=== PATIENT | male | born 1935 | race Caucasian/White ===

== ENCOUNTER 2017-07-13 09:03 | Observation (INO) | payer BC, OTHER ==
[2017-07-13 09:09] VITALS: BMI 25.4
--- NOTE | 2017-07-13 09:17 | PDOC ---
History of Present Illness - General Chief Complaint: Edema Stated Complaint: RT ARM PAIN Time Seen by Provider: 07/13/17 09:17 - History of Present Illness Initial Comments: 07/13/17 09:18 Mr. Lyn is an 82 yo male w/ pmh of CHF, AFIB on warfarin, tricuspid insufficiency, (+Coumadin; + Digoxin), HTN, hypothyroidism, hyperlipidemia, anemia (iron deficient), who presents complaining of a 2-3 day history of right hand swelling and pain. He denies any trauma or injury to his extremity but reports he has also had difficulty moving it over this same time period. Denies any prior history of gout. The patient denies chest pain, shortness of breath, headache and dizziness. Denies fever, chills, nausea, vomit, diarrhea and constipation. Denies dysuria, frequency, urgency and hematuria. Allergies: cefuroxime Past History - Past Medical History Allergies/Adverse Reactions: Allergies Allergy/AdvReac Type Severity Reaction Status Date / Time cefuroxime Allergy Intermediate rash on Verified 07/13/17 09:05 legs Home Medications: Ambulatory Orders Digoxin [Lanoxin -] 0.125 mg PO DAILY 05/24/15 Furosemide 40 mg PO DAILY 05/24/15 Levothyroxine [Synthroid -] 50 mcg PO DAILY 05/24/15 Losartan Potassium [Cozaar -] 25 mg PO DAILY 05/24/15 Potassium Chloride 20 meq PO DAILY 05/24/15 Simvastatin [Zocor -] 10 mg PO HS 05/24/15 Metoprolol Succinate [Toprol XL -] 50 mg PO BID tab.sr.24h 05/31/15 Cholecalciferol (Vitamin D3) [Vitamin D3] 1,000 unit PO DAILY 07/13/17 Cyanocobalamin (Vitamin B-12) [Vitamin B-12] 1,000 mcg PO DAILY 07/13/17 Spironolactone 25 mg PO DAILY 07/13/17 Tamsulosin HCl 0.4 mg PO DAILY 07/13/17 Warfarin Na [Coumadin -] 6 mg PO DAILY@1800 07/13/17 Anemia: No Asthma: No Cancer: No Cardiac Disorders: Yes (atrial fib) CVA: No COPD: No CHF: Yes (10 yeas ago) Dementia: No Diabetes: No GI Disorders: No Disorders: No HTN: Yes Hypercholesterolemia: No Liver Disease: No Seizures: No Thyroid Disease: Yes - Surgical History Neurologic Surgery: No - Suicide/Smoking/Psychosocial Hx Smoking Status: No Smoking History: Former smoker Have you smoked in the past 12 months: No Number of Cigarettes Smoked Daily: 0 If you are a former smoker, when did you quit?: 1953 Information on smoking cessation initiated: No Hx Alcohol Use: No Drug/Substance Use Hx: No Substance Use Type: None Hx Substance Use Treatment: No Review of Systems - Review of Systems Comments:: 07/13/17 10:34 GENERAL/CONSTITUTIONAL: No fever or chills. No weakness. HEAD, EYES, EARS, NOSE AND THROAT: No change in vision. No ear pain or discharge. No sore throat. CARDIOVASCULAR: No chest pain or shortness of breath RESPIRATORY: No cough, wheezing, or hemoptysis. GASTROINTESTINAL: No nausea, vomiting, diarrhea or constipation. GENITOURINARY: No dysuria, frequency, or change in urination. MUSCULOSKELETAL: +Right hand /arm swelling / pain as described. SKIN: No rash NEUROLOGIC: No headache, vertigo, loss of consciousness, or change in strength/ sensation. ENDOCRINE: No increased thirst. No abnormal weight change HEMATOLOGIC/LYMPHATIC: No anemia, easy bleeding, or history of blood clots. ALLERGIC/IMMUNOLOGIC: No hives or skin allergy. *Physical Exam - Vital Signs Last Vital Signs Temp Pulse Resp BP Pulse Ox 98.1 F 94 H 17 172/93 97 07/13/17 09:05 07/13/17 09:05 07/13/17 09:05 07/13/17 09:05 07/13/17 09:05 - Physical Exam Comments: 07/13/17 10:36 GENERAL: Awake, alert, and fully oriented, in no acute distress HEAD: No signs of trauma, normocephalic, atraumatic EYES: PERRLA, EOMI, sclera anicteric, conjunctiva clear ENT: Auricles normal inspection, hearing grossly normal, nares patent, oropharynx clear without exudates. Moist mucosa NECK: Normal ROM, supple, no lymphadenopathy, JVD, or masses LUNGS: No distress, speaks full sentences, clear to auscultation bilaterally HEART: Regular rate and rhythm, normal S1 and S2, no murmurs, rubs or gallops, peripheral pulses normal and equal bilaterally. ABDOMEN: Soft, nontender, normoactive bowel sounds. No guarding, no rebound. No masses EXTREMITIES: +Right hand erythematous and warm. Patient range of motion limited by edema. Moderate tenderness to right upper arm as well just proximal to elbow. NEUROLOGICAL: Cranial nerves II through XII grossly intact. Normal speech, normal gait, no focal sensorimotor deficits SKIN: Warm, Dry, normal turgor, no rashes or lesions noted. ED Treatment Course - LABORATORY CBC & Chemistry Diagram: 07/13/17 10:13 07/13/17 10:13 Medical Decision Making - Medical Decision Making 07/13/17 10:49 Mr. Lyn is an 82 yo male w/ pmh as described who presents w/ symptoms concerning for cellulitis vs dvt vs gout. Labs/imaging sent for evaluation. 07/13/17 13:44 US negative for DVT. XR negative for other acute process. Labs as below consistent with infection. Admitting patient for further observation and IV antibiotics for cellulitis. *DC/Admit/Observation/Transfer Diagnosis at time of Disposition: Cellulitis Qualifiers: Site of cellulitis: other site Qualified Code(s): L03.818 - Cellulitis of other sites - Discharge Dispostion Admit: Yes - Referrals Referrals: Hannah Ho MD [Primary Care Provider] - - Patient Instructions - Post Discharge Activity
--- NOTE | 2017-07-13 09:23 | PDOC ---
Attending Attestation - HPI HPI: 07/13/17 10:15 The patient is an 82 year old male with a significant PMH of tricuspid insufficiency (on Coumadin & Digoxin), CHF, AFib, anemia, HTN, hypothyroidism, hyperlipidemia who presents to the emergency department with right hand swelling and pain beginning approximately 2-3 days ago. He states his right hand pain radiates up his right arm. The patient denies recent trauma. Allergies: Cefuroxime PCP: Dr. Ho <Pipe Larios - Last Filed: 07/13/17 10:15> - Resident Resident Name: Arias Mahan - ED Attending Attestation I have performed the following: I have examined & evaluated the patient, The case was reviewed & discussed with the resident, I agree w/resident's findings & plan, Exceptions are as noted - Physicial Exam PE: GENERAL: Awake, alert, and fully oriented, in no acute distress HEAD: No signs of trauma EYES: PERRLA, EOMI, sclera anicteric, conjunctiva clear ENT: Auricles normal inspection, hearing grossly normal, nares patent, oropharynx clear without exudates. Moist mucosa NECK: Normal ROM, supple, no lymphadenopathy, JVD, or masses LUNGS: Breath sounds equal, clear to auscultation bilaterally. No wheezes, and no crackles HEART: Regular rate and rhythm, normal S1 and S2, no murmurs, rubs or gallops ABDOMEN: Soft, nontender, normoactive bowel sounds. No guarding, no rebound. No masses EXTREMITIES: R hand with erythema and 4+ pitting edema to the wrist. +Warmth and tenderness to the same. R elbow with 1+ edema, also tender. No erythema or warmth. No lymphatic streaking. Pulses intact. [place]ner of extremiteise with normal range of motion, no edema. No clubbing or cyanosis. No cords, erythema, or tenderness NEUROLOGICAL: Cranial nerves II through XII grossly intact. Normal speech, normal gait SKIN: Warm, Dry, normal turgor, no rashes or lesions noted. - Medical Decision Making Pt with R hand swelling- ddx includes cellulitis, DVT, gout. Will obtain sono to r/o DVT. Gout unlikely for new onset at patient's age. Cellulitis more likely. <Catie Awad - Last Filed: 07/13/17 11:13>
[2017-07-13 10:40] LABS: BASO % 0.4 % (0-2.0); HEMATOCRIT 38.4 % (35.4-49); HEMOGLOBIN 13.1 GM/dL (11.7-16.9); MCHC 34.1 g/dl (32.0-35.9); MEAN PLT VOLUME 8.9 fl (7.5-11.1); MONO % 12.9 % (3.8-10.2); NEUT % 81.7 % (42.8-82.8); PLATELET COUNT 161 K/MM3 (134-434); RBC 4.09 M/mm3 (4.00-5.60); RDW 14.5 % (11.9-15.9)
[2017-07-13 11:01] LABS: ALBUMIN 3.7 g/dl (3.4-5.0); ANION GAP 8 (8-16); BLOOD UREA NITROGEN 18 mg/dL (7-18); CALCIUM 8.7 mg/dL (8.5-10.1); CHLORIDE 106 mmol/L (98-107); CO2 24 mmol/L (21-32); CREATININE 1.2 mg/dL (0.7-1.3); GLUCOSE,RANDOM 122 mg/dL (74-106); POTASSIUM 4.1 mmol/L (3.5-5.1); SGOT/AST 20 U/L (15-37); SGPT/ALT 24 U/L (12-78); SODIUM 138 mmol/L (136-145)
[2017-07-13 11:04] LABS: ALK PHOS 143 U/L (45-117); BILIRUBIN,TOTAL 2.7 mg/dL (0.2-1.0); TOT PROT 7.8 g/dl (6.4-8.2)
[2017-07-13 11:22] LABS: INR 3.09 (0.82-1.09); PROTHROMBIN TIME (PATIENT) 34.9 SEC (9.7-13.0)
[2017-07-13 11:34] LABS: ERYTHROCYTE SEDIMENTATION RATE 59 mm/hr (0-20)
[2017-07-13] MEDS ORDERED: CLINDAMYCIN 600MG PREMIX IVPB 600 MG/50 ML BAG IVPB ONE ×2 (13:12→13:36)
--- NOTE | 2017-07-13 14:29 | HP ---
Admitting History and Physical - Primary Care Physician PCP: Hannah Ho - Admission Chief Complaint: right hand swelling for 3 days History of Present Illness: Mr. Lyn is an 82 yo male w/ pmh of CHF, AFIB on warfarin, tricuspid insufficiency, (+Coumadin; + Digoxin), HTN, hypothyroidism, hyperlipidemia, anemia (iron deficient), who presents complaining of a 2-3 day history of right hand swelling and pain. He denies any trauma or injury to his extremity but reports he has also had difficulty moving it over this same time period. Denies any prior history of gout per patient he didnot work outside in yard, no trauma no new medication. he reports no fever at home found to have wbc 11.0 - Past Medical History Cardiovascular: Yes: AFIB, CHF, HTN, Hyperlipdemia, Murmur, Pulmonary Hypertension, Other (tricuspid insuficiency) Endocrine: Yes: Hypothyroidism - Smoking History Smoking history: Former smoker Have you smoked in the past 12 months: No Aproximately how many cigarettes per day: 0 If you are a former smoker, when did you quit?: 1953 - Alcohol/Substance Use Hx Alcohol Use: No - Social History ADL: Independent Occupation: retired History of Recent Travel: No Home Medications - Allergies Allergies/Adverse Reactions: Allergies Allergy/AdvReac Type Severity Reaction Status Date / Time cefuroxime Allergy Intermediate rash on Verified 07/13/17 09:05 legs - Home Medications Home Medications: Ambulatory Orders Digoxin [Lanoxin -] 0.125 mg PO DAILY 05/24/15 Furosemide 40 mg PO DAILY 05/24/15 Levothyroxine [Synthroid -] 50 mcg PO DAILY 05/24/15 Losartan Potassium [Cozaar -] 25 mg PO DAILY 05/24/15 Simvastatin [Zocor -] 10 mg PO HS 05/24/15 Metoprolol Succinate [Toprol XL -] 50 mg PO BID tab.sr.24h 05/31/15 Cholecalciferol (Vitamin D3) [Vitamin D3] 1,000 unit PO DAILY 07/13/17 Cyanocobalamin (Vitamin B-12) [Vitamin B-12] 1,000 mcg PO DAILY 07/13/17 Spironolactone 25 mg PO DAILY 07/13/17 Tamsulosin HCl 0.4 mg PO DAILY 07/13/17 Warfarin Na [Coumadin -] 3 mg PO MOWEFR 07/13/17 Warfarin Sodium [Coumadin] 6 mg PO SUTUTHSA 07/13/17 Review of Systems - Review of Systems Musculoskeletal: reports: Joint Swelling Integumentary: reports: Erythema Physical Examination Vital Signs: Vital Signs Temperature 98.1 F 07/13/17 09:05 Pulse Rate 80 07/13/17 14:18 Respiratory Rate 20 07/13/17 14:18 Blood Pressure 142/81 07/13/17 14:18 O2 Sat by Pulse Oximetry (%) 98 07/13/17 14:18 Constitutional: Yes: Calm Neck: Yes: Trachea Midline Cardiovascular: Yes: Regular Rate and Rhythm, S1, S2 Respiratory: Yes: CTA Bilaterally Gastrointestinal: Yes: Normal Bowel Sounds, Soft Extremities: Yes: Erythema, Other (edema,restricted range of motion) Neurological: Yes: Alert, Oriented Labs: CBC, BMP 07/13/17 10:13 07/13/17 10:13 Imaging - Results Other: Report Reviewed (no dvt) Problem List - Problems (1) Cellulitis Assessment/Plan: got iv clindamycin ID and surgical consult CT scan of arm w/o contrast dvt ppx trend ESR analgesics Code(s): L03.90 - CELLULITIS, UNSPECIFIED Qualifiers: Site of cellulitis: other site Qualified Code(s): L03.818 - Cellulitis of other sites (2) Atrial fibrillation Assessment/Plan: couamdin INR is 3 wll hold tonight dose metoprolol Code(s): I48.91 - UNSPECIFIED ATRIAL FIBRILLATION Qualifiers: Atrial fibrillation type: chronic Qualified Code(s): I48.2 - Chronic atrial fibrillation (3) Congestive heart failure Assessment/Plan: losaratan aldactone lasix Code(s): I50.9 - HEART FAILURE, UNSPECIFIED (4) Hypothyroid Assessment/Plan: synthroid tsh Code(s): E03.9 - HYPOTHYROIDISM, UNSPECIFIED (5) Total bilirubin, elevated Assessment/Plan: ultrasound of liver and ggtp Code(s): R17 - UNSPECIFIED JAUNDICE
[2017-07-13] MEDS ORDERED: ATORVASTATIN CA 20 MG TABLET (FP) PO ONE (14:36)
[2017-07-13] MEDS ORDERED: ACETAMINOPHEN 325 MG TABLET (FP) PO PRN (15:56)
--- NOTE | 2017-07-13 17:48 | PN ---
Teaching Attending Note Name of Resident: Ermias Sotelo ATTENDING PHYSICIAN STATEMENT I saw and evaluated the patient. I reviewed the resident's note and discussed the case with the resident. I agree with the resident's findings and plan as documented. SUBJECTIVE: right hand swelling and forearm pain recent 3-4 days of left hand (2 fingers) swelling that resolved spontaneously no fevers on a new med- doesn't know what- not on his list reports watery stools several times a day- nonbloody denies history of gout lives alone no pet scratches, insect bites OBJECTIVE: Vital Signs Period Temp Pulse Resp BP Sys/Edwards Pulse Ox Last 24 Hr 98.1 F-98.1 F 80-94 17-20 119-172/62-93 80-99 [place] cor-rrr no conjunctivitis lungs clear abd soft,nt scrotal swelling urethral opening at base of penis ext venous stasis changes, right hand with diffuse swelling- +warmth of forearm +radial pulse CBC, BMP 07/13/17 10:13 07/13/17 10:13 ASSESSMENT AND PLAN: right hand/forearm swelling and pain ?cellulitis- not sure with recent swelling left hand and elbow that resolved spontaneously esr/crp/uric acid blood cultures rheumatology consult diarrhea- stool studies including culture and cdiff Problem List - Problems (1) Cellulitis Code(s): L03.90 - CELLULITIS, UNSPECIFIED Qualifiers: Site of cellulitis: other site Qualified Code(s): L03.818 - Cellulitis of other sites (2) Diarrhea Code(s): R19.7 - DIARRHEA, UNSPECIFIED
--- NOTE | 2017-07-13 17:50 | CON.ID ---
Consult Consult Specialty:: Infectious disease Referred by:: Dr. Elaine Reason for Consultation:: Right hand swelling and erythema - History of Present Illness Chief Complaint: Right hand swelling History of Present Illness: The patient is an 82 yo m w/ PMH CHF, Afib on coumadin, tricuspid insufficiency , HTN who comes into the ED c/o a 2 day history of right hand swelling and pain. The patient states that "a few weeks ago" he began to experience left hand swelling, erythema and pain. The swelling also involved his elbow and caused his left arm to be week. This swelling resolved spontaneously. 2 days ago , the patient began to experience right hand and arm swelling, erythema and pain as well as right arm weakness. In addition to this, the patient also endorses watery diarrhea which began around the same time and his left arm swelling. Patient incidentally mentions scrotal swelling which has been present for a number of years. Patient denies fevers, chills, trauma to the area. - Past Medical History Cardio/Vascular: Yes: AFIB, CHF, HTN, Hyperlipdemia, Murmur, Pulmonary Hypertension, Other (tricuspid insuficiency) Endocrine: Yes: Hypothyroidism - Alcohol/Substance Use Hx Alcohol Use: No - Smoking History Smoking history: Former smoker Have you smoked in the past 12 months: No Aproximately how many cigarettes per day: 0 If you are a former smoker, when did you quit?: 1953 - Social History Usual Living Arrangement: Alone ADL: Independent Occupation: retired History of Recent Travel: No Home Medications - Allergies Allergies/Adverse Reactions: Allergies Allergy/AdvReac Type Severity Reaction Status Date / Time cefuroxime Allergy Intermediate rash on Verified 07/13/17 09:05 legs - Home Medications Home Medications: Ambulatory Orders Digoxin [Lanoxin -] 0.125 mg PO DAILY 05/24/15 Furosemide 40 mg PO DAILY 05/24/15 Levothyroxine [Synthroid -] 50 mcg PO DAILY 05/24/15 Losartan Potassium [Cozaar -] 25 mg PO DAILY 05/24/15 Simvastatin [Zocor -] 10 mg PO HS 05/24/15 Metoprolol Succinate [Toprol XL -] 50 mg PO BID tab.sr.24h 05/31/15 Cholecalciferol (Vitamin D3) [Vitamin D3] 1,000 unit PO DAILY 07/13/17 Cyanocobalamin (Vitamin B-12) [Vitamin B-12] 1,000 mcg PO DAILY 07/13/17 Spironolactone 25 mg PO DAILY 07/13/17 Tamsulosin HCl 0.4 mg PO DAILY 07/13/17 Warfarin Na [Coumadin -] 3 mg PO MOWEFR 07/13/17 Warfarin Sodium [Coumadin] 6 mg PO SUTUTHSA 07/13/17 Review of Systems - Review of Systems Constitutional: denies: Chills, Diaphoresis, Fever Cardiovascular: denies: Chest Pain, Edema, Palpitations, Shortness of Breath Respiratory: denies: Cough, Orthopnea Gastrointestinal: denies: Abdominal Pain, Constipation Genitourinary: reports: Frequency, Incontinence. denies: Burning, Discharge, Dysuria, Hematuria Musculoskeletal: reports: Extremity Pain (right side), Joint Pain (right hand and elbow), Joint Swelling (right hand and elbow) Physical Exam Vital Signs: Vital Signs Temperature 98.1 F 07/13/17 16:28 Pulse Rate 81 07/13/17 16:28 Respiratory Rate 20 07/13/17 16:28 Blood Pressure 119/62 07/13/17 16:28 O2 Sat by Pulse Oximetry (%) 99 07/13/17 16:42 Constitutional: Yes: No Distress, Calm HENT: Yes: Atraumatic, Normocephalic Cardiovascular: Yes: Regular Rate and Rhythm, S1, S2. No: JVD, Gallop, Murmur, Rub Respiratory: Yes: Regular, CTA Bilaterally Gastrointestinal: Yes: Normal Bowel Sounds, Soft Renal/: Yes: Incontinence, Scrotal Edema (scrotal edema and discoloration. Scrotum is tender to palpation) Musculoskeletal: Yes: Joint Swelling Extremities: Yes: Erythema (right hand and elbow erythematous and swollen as well as tender to palpation) Neurological: Yes: Alert, Oriented, Weakness (right arm weakness) ...Motor Strength: LUE (5/5), RUE (4/5) Labs: CBC, BMP 07/13/17 10:13 07/13/17 10:13 Assessment/Plan The patient is an 82 yo m w/ PMH CHF. Afib on coumadin, triscuspid insufficiency , HTN who comes into the ER c/o right hand swelling for 2 days. -the migratory nature of the patient's erythema and swelling is more indicative of a rheumatologic disorder -will place rheum consult -will administer Vancomycin 1g to cover MSSA, MRSA and strep. sp. empirically, though infecious cause unlikely -Will send stool studies as the patient has been haveing diarrhea -Uric acid in the am r/o gout; patient unsure of gout hx -CRP in AM -will follow -case d/w Dr. Torres
[2017-07-13] MEDS ORDERED: VANCOMYCIN 1 GM PREMIX - 1 GM/200 ML BAG IVPB SCH (18:00)
--- NOTE | 2017-07-13 18:39 | CON.CARD ---
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 sx's for 2-3 days. assoc with difficulty moving right hand. He denies any trauma or injury to his extremity + diarrhea, No cp, palps, dizzy, loc, pnd, orthopnea. Sees Dr Jacques for cardio. No f/c/s, n/v, rash, nasal congestion, HAYNES, vision changes, wt loss, pmh: per hpi psh: nc ros: per hpi; fam: no premature cad social: ex tob meds: Ambulatory Orders Digoxin [Lanoxin -] 0.125 mg PO DAILY 05/24/15 Furosemide 40 mg PO DAILY 05/24/15 Levothyroxine [Synthroid -] 50 mcg PO DAILY 05/24/15 Losartan Potassium [Cozaar -] 25 mg PO DAILY 05/24/15 Simvastatin [Zocor -] 10 mg PO HS 05/24/15 Metoprolol Succinate [Toprol XL -] 50 mg PO BID tab.sr.24h 05/31/15 Cholecalciferol (Vitamin D3) [Vitamin D3] 1,000 unit PO DAILY 07/13/17 Cyanocobalamin (Vitamin B-12) [Vitamin B-12] 1,000 mcg PO DAILY 07/13/17 Spironolactone 25 mg PO DAILY 07/13/17 Tamsulosin HCl 0.4 mg PO DAILY 07/13/17 Warfarin Na [Coumadin -] 3 mg PO MOWEFR 07/13/17 Warfarin Sodium [Coumadin] 6 mg PO SUTUTHSA 07/13/17 Current Medications Acetaminophen (Tylenol -) 650 mg PO Q6H PRN PRN Reason: PAIN Atorvastatin Calcium (Lipitor -) 20 mg PO HS [facility] Digoxin (Lanoxin -) 0.125 mg PO DAILY@0800 [facility] Furosemide (Lasix -) 40 mg PO DAILY [facility] Vancomycin HCl (Vancomycin 1 Gm Premix -) 1 gm in 200 mls @ 133.333 mls/hr IVPB DAILY@1800 [facility] PRN Reason: Protocol Levothyroxine Sodium (Synthroid -) 50 mcg PO DAILY@0700 [facility] Losartan Potassium (Cozaar -) 25 mg PO DAILY@0800 [facility] Metoprolol Succinate (Toprol Xl -) 50 mg PO BID [facility] Potassium Chloride (K-Dur -) 20 meq PO DAILY@0800 [facility] Spironolactone (Aldactone -) 25 mg PO DAILY [facility] Tamsulosin HCl (Flomax -) 0.4 mg PO DAILY@0830 [facility] pe: Vital Signs - 24 hr 07/13/17 07/13/17 07/13/17 09:05 14:15 14:18 Temperature 98.1 F Pulse Rate 94 H Pulse Rate [ 80 Radial] Respiratory 17 20 Rate Blood Pressure 172/93 Blood Pressure 142/81 [Left Arm] O2 Sat by Pulse 97 80 L 98 Oximetry (%) 07/13/17 07/13/17 16:28 16:42 Temperature 98.1 F Pulse Rate 81 Pulse Rate [ Radial] Respiratory 20 Rate Blood Pressure 119/62 Blood Pressure [Left Arm] O2 Sat by Pulse 99 Oximetry (%) Intake & Output 07/11/17 07/12/17 07/13/17 07/14/17 07:59 07:59 07:59 07:59 Weight 170 lb 8 oz nad, no jvd irreg, s1s2 no mrg scattered exp wheeze, nl eff aaox3 1+ le edema b/l with chronic stasis changes of skin abd nt nd pos bs no diaphoresis/jaundice pos dp/pt CBC, BMP 07/13/17 10:13 07/13/17 10:13 echo 04/2014: mod dil lv, lvef 35%, nl rv s/f, mod mr, mod-sev tr, mod ar, dilated ivc, sev phtn (similar to 2013)
[2017-07-13] MEDS: ATORVASTATIN CA 20 MG TABLET (FP) PO SCH (21:51)
[2017-07-14] MEDS: LEVOTHYROXINE NA 50 MCG TABLET (FP) PO SCH (06:22)
[2017-07-14 07:39] LABS: HEMATOCRIT 36.2 % (35.4-49); HEMOGLOBIN 12.7 GM/dL (11.7-16.9); MCH 32.1 pg (25.7-33.7); MEAN CELL VOLUME 91.9 fl (80-96); MEAN PLT VOLUME 9.4 fl (7.5-11.1); PLATELET COUNT 158 K/MM3 (134-434); RBC 3.94 M/mm3 (4.00-5.60); RDW 14.1 % (11.9-15.9); WHITE BLOOD COUNT 9.7 K/mm3 (4.0-10.0)
[2017-07-14 08:00] LABS: INR 3.35 (0.82-1.09); PROTHROMBIN TIME (PATIENT) 37.9 SEC (9.7-13.0)
[2017-07-14 08:02] LABS: CHLORIDE 106 mmol/L (98-107); POTASSIUM 3.8 mmol/L (3.5-5.1); SODIUM 137 mmol/L (136-145)
[2017-07-14 08:11] LABS: URIC ACID 7.8 mg/dL (2.6-7.2)
[2017-07-14 08:29] LABS: ALK PHOS 133 U/L (45-117); ANION GAP 10 (8-16); BILIRUBIN,TOTAL 2.3 mg/dL (0.2-1.0); BLOOD UREA NITROGEN 23 mg/dL (7-18); CALCIUM 8.3 mg/dL (8.5-10.1); CO2 21 mmol/L (21-32); GLUCOSE,RANDOM 91 mg/dL (74-106); SGOT/AST 18 U/L (15-37); SGPT/ALT 25 U/L (12-78); TOT PROT 6.7 g/dl (6.4-8.2)
--- NOTE | 2017-07-14 09:26 | CONSULT ---
Consult Consult Specialty:: hand and microsurgery Reason for Consultation:: swollen right hand - History of Present Illness Chief Complaint: hand swelling and pain History of Present Illness: 82 yo RHD male PMH CHF, AFIB on warfarin, tricuspid insufficiency, (+Coumadin; + Digoxin), HTN, hypothyroidism, hyperlipidemia, anemia (iron deficient), who presents complaining of a 2-3 day history of right hand swelling and pain. He has had similar swelling in the opposite extremity that resolved with out specific management. He denies any antecedent trauma to his right hand wrist or arm but reports he has also had difficulty moving it over this same time period. Denies any prior history of gout. Denies any history of fracture or dislocation. We were asked to assess. - History Source History Provided By: Patient, Medical Record Limitations to Obtaining History: No Limitations - Past Medical History Cardio/Vascular: Yes: AFIB, CHF, HTN, Hyperlipdemia, Murmur, Pulmonary Hypertension, Other (tricuspid insuficiency) Endocrine: Yes: Hypothyroidism - Alcohol/Substance Use Hx Alcohol Use: No - Smoking History Smoking history: Former smoker Have you smoked in the past 12 months: No Aproximately how many cigarettes per day: 0 If you are a former smoker, when did you quit?: 1953 - Social History Usual Living Arrangement: Alone ADL: Independent Occupation: retired History of Recent Travel: No Home Medications - Allergies Allergies/Adverse Reactions: Allergies Allergy/AdvReac Type Severity Reaction Status Date / Time cefuroxime Allergy Intermediate rash on Verified 07/13/17 09:05 legs - Home Medications Home Medications: Ambulatory Orders Digoxin [Lanoxin -] 0.125 mg PO DAILY 05/24/15 Furosemide 40 mg PO DAILY 05/24/15 Levothyroxine [Synthroid -] 50 mcg PO DAILY 05/24/15 Losartan Potassium [Cozaar -] 25 mg PO DAILY 05/24/15 Simvastatin [Zocor -] 10 mg PO HS 05/24/15 Metoprolol Succinate [Toprol XL -] 50 mg PO BID tab.sr.24h 05/31/15 Cholecalciferol (Vitamin D3) [Vitamin D3] 1,000 unit PO DAILY 07/13/17 Cyanocobalamin (Vitamin B-12) [Vitamin B-12] 1,000 mcg PO DAILY 07/13/17 Spironolactone 25 mg PO DAILY 07/13/17 Tamsulosin HCl 0.4 mg PO DAILY 07/13/17 Warfarin Na [Coumadin -] 3 mg PO MOWEFR 07/13/17 Warfarin Sodium [Coumadin] 6 mg PO SUTUTHSA 07/13/17 Review of Systems - Review of Systems Constitutional: denies: Chills, Fever Eyes: denies: Blurred Vision, Recent Change in Vision HENT: denies: Difficult Swallowing, Throat Pain Neck: denies: Pain on Movement, Tenderness Cardiovascular: denies: Chest Pain, Palpitations Respiratory: denies: Cough, SOB, Wheezing Gastrointestinal: denies: Constipation, Diarrhea Genitourinary: denies: Discharge, Dysuria Breasts: reports: No Symptoms Reported. denies: Pain Musculoskeletal: denies: Muscle Pain, Muscle Weakness Integumentary: denies: Lesions, Lump, Rash Neurological: denies: Seizure, Syncope Endocrine: denies: Unexplained Weight Gain, Unexplained Weight Loss Hematology/Lymphatic: denies: Easily Bruised, Excessive Bleeding Psychiatric: denies: Anxiety, Depression Physical Exam Vital Signs: Vital Signs Temperature 97.8 F 07/14/17 06:00 Pulse Rate 80 07/14/17 06:00 Respiratory Rate 20 07/14/17 06:00 Blood Pressure 147/84 07/14/17 06:00 O2 Sat by Pulse Oximetry (%) 99 07/14/17 00:42 Vital Signs Period Temp Pulse Resp BP Sys/Edwards Pulse Ox Last 24 Hr 97.5 F-98.1 F 67-81 20-20 119-150/62-86 80-99 Constitutional: Yes: No Distress, Calm Eyes: Yes: Conjunctiva Clear, EOM Intact HENT: Yes: Atraumatic, Normocephalic Neck: Yes: Supple, Trachea Midline Cardiovascular: Yes: Regular Rate and Rhythm, S1, S2 Respiratory: Yes: Regular, CTA Bilaterally Gastrointestinal: Yes: Normal Bowel Sounds, Soft. No: Tenderness Renal/: No: CVA Tenderness - Left, CVA Tenderness - Right Musculoskeletal: No: Muscle Pain, Muscle Weakness Extremities: Yes: Erythema, Other (edema, minimal erythema radial side of right hand ringer tip to mid forearm.). No: Cool, Cyanosis Edema: Yes Edema: RUE: 1+ Integumentary: No: Jaundice, Rash Neurological: Yes: Alert, Oriented Psychiatric: Yes: Alert, Oriented Labs: CBC, BMP 07/14/17 06:30 07/14/17 06:30 Imaging - Results X-ray: Report Reviewed (Right wrist ulnar imaction and chronic DRUJ dislocation , healed distal Radius fracture?), Image Reviewed Cat Scan: Report Reviewed, Image Reviewed (Edema RUE radial hand an forearm) Ultrasound: Report Reviewed, Image Reviewed (No RUE DVT noted) Problem List - Problems (1) DRUJ (distal radioulnar joint) arthrosis, primary Assessment/Plan: 82 yo RHD male presents with right hand and wrist pain and swelling, Limited ROM. Significant wrist arthropathy including chronic DRUJ dislocation and Ulnar Impingement. This is not likely infectious and more likely edema secondary to athritis RUE elevation above heart level Anti inflammatory (NSAIDs and Steroids) Brace for support Rhematology evaluation Will follow Thank you for the opportunity to participate in the care of this patient. Code(s): M19.039 - PRIMARY OSTEOARTHRITIS, UNSPECIFIED WRIST Qualifiers: Laterality: right Qualified Code(s): M19.031 - Primary osteoarthritis, right wrist (2) Ulnar impingement syndrome of right upper extremity Code(s): M25.831 - OTHER SPECIFIED JOINT DISORDERS, RIGHT WRIST (3) Congestive heart failure Code(s): I50.9 - HEART FAILURE, UNSPECIFIED (4) Hypothyroid Code(s): E03.9 - HYPOTHYROIDISM, UNSPECIFIED (5) Acute exacerbation of CHF (congestive heart failure) Code(s): I50.9 - HEART FAILURE, UNSPECIFIED (6) Edema Code(s): R60.9 - EDEMA, UNSPECIFIED (7) Hyperlipidemia Code(s): E78.5 - HYPERLIPIDEMIA, UNSPECIFIED (8) Hypothyroid Code(s): E03.9 - HYPOTHYROIDISM, UNSPECIFIED Qualifiers: Hypothyroidism type: unspecified hypothyroidism (9) Pulmonary hypertension Code(s): I27.2 - OTHER SECONDARY PULMONARY HYPERTENSION * DO NOT USE * (10) Venous stasis of both lower extremities Code(s): I87.8 - OTHER SPECIFIED DISORDERS OF VEINS
[2017-07-14] MEDS: DIGOXIN 0.125 MG TABLET (FP) PO SCH (09:50)
[2017-07-14] MEDS: FUROSEMIDE 40 MG TABLET (FP) PO SCH (09:50)
[2017-07-14] MEDS: TAMSULOSIN HCL 0.4 MG CAP.ER.24H (FP) PO SCH (09:50)
[2017-07-14] MEDS: SPIRONOLACTONE 25 MG TABLET (FP) PO SCH (09:50)
[2017-07-14] MEDS: LOSARTAN POTASSIUM 25 MG TABLET PO SCH (09:50)
[2017-07-14] MEDS: POTASSIUM CHLORIDE TABS 20 MEQ TABLET.ER (FP) PO SCH (09:50)
--- NOTE | 2017-07-14 14:27 | PN ---
Progress Note, Physician History of Present Illness: Patient seen and examined at bedside. hand erythema and swelling slightly better today as per patient, but he continues to c/o pain. Patient states that his diarrhea is improving, now only consisting of "many little pieces" without any water. Patient endorses one solid stool today. - Current Medication List Current Medications: Active Medications Acetaminophen (Tylenol -) 650 mg PO Q6H PRN PRN Reason: PAIN Atorvastatin Calcium (Lipitor -) 20 mg PO HS [facility] Last Admin: 07/13/17 21:51 Dose: 20 mg Digoxin (Lanoxin -) 0.125 mg PO DAILY@0800 [facility] Last Admin: 07/14/17 09:50 Dose: 0.125 mg Furosemide (Lasix -) 40 mg PO DAILY [facility] Last Admin: 07/14/17 09:50 Dose: 40 mg Vancomycin HCl (Vancomycin 1 Gm Premix -) 1 gm in 200 mls @ 133.333 mls/hr IVPB DAILY@1800 [facility] PRN Reason: Protocol Last Admin: 07/13/17 19:35 Dose: 133.333 mls/hr Levothyroxine Sodium (Synthroid -) 50 mcg PO DAILY@0700 [facility] Last Admin: 07/14/17 06:22 Dose: 50 mcg Losartan Potassium (Cozaar -) 25 mg PO DAILY@0800 [facility] Last Admin: 07/14/17 09:50 Dose: 25 mg Metoprolol Succinate (Toprol Xl -) 50 mg PO BID [facility] Last Admin: 07/14/17 09:50 Dose: 50 mg Potassium Chloride (K-Dur -) 20 meq PO DAILY@0800 [facility] Last Admin: 07/14/17 09:50 Dose: 20 meq Spironolactone (Aldactone -) 25 mg PO DAILY [facility] Last Admin: 07/14/17 09:50 Dose: 25 mg Tamsulosin HCl (Flomax -) 0.4 mg PO DAILY@0830 [facility] Last Admin: 07/14/17 09:50 Dose: 0.4 mg - Objective Vital Signs: Vital Signs Temperature 98.0 F 07/14/17 09:12 Pulse Rate 81 07/14/17 09:50 Respiratory Rate 18 07/14/17 09:12 Blood Pressure 152/75 07/14/17 09:12 O2 Sat by Pulse Oximetry (%) 99 07/14/17 08:00 Constitutional: Yes: Well Nourished, No Distress, Calm HENT: Yes: Atraumatic, Normocephalic Cardiovascular: Yes: Regular Rate and Rhythm, S1, S2. No: JVD, Gallop, Murmur, Rub Respiratory: Yes: Regular, Other (crackles at the bases.) Gastrointestinal: Yes: Normal Bowel Sounds, Soft Extremities: Yes: Other (Erythema and swelling improved today) Edema: Yes Edema: RUE: 4+ Labs: CBC, BMP 07/14/17 06:30 07/14/17 06:30 INR, PTT INR 3.35 (0.82-1.09) H 07/14/17 06:30 Assessment/Plan The patient is an 82 yo m w/ PMH CHF. Afib on coumadin, triscuspid insufficiency , HTN who comes into the ER c/o right hand swelling for 2 days. -inflammation now involving multiple joints b/l -Bcx NGTD -f/u stool studies -Uric acid elevtated to 7.8 -CRP elevated to 14.6 -Discussed the case w/ Dr. Muir. Patient has an inflammatory arthritis of unclear eitology; unlikely to be infectious in nature. -rheum to start the patient on Prednisone, naprosyn. -Will d/c ABX -Management as per Rheumatology. -case d/w Dr. Torres
--- NOTE | 2017-07-14 14:39 | CONSULT ---
Consult Consult Specialty:: Rheumatology - History of Present Illness History of Present Illness: 82 yo male with PMH of CHF, AFIB on warfarin, tricuspid insufficiency, (+ Coumadin; + Digoxin), HTN, hypothyroidism, hyperlipidemia, anemia (iron deficient), admitted with pain and sweklling in the right hand. HPI Two weeks ago the patient developed pain and swelling in the left hand with decreased flexion of fingers and limitation in his activities. The pain improved partially after 3 days. Three days ago he developed similar symptoms in the right hand. The painis present all day andhe has stifness and limitation in flexionlasting all day. He denies recent trauma and denies history of gout. Laboratory work-up revealed ESR 62, creatinine 1.0, uric acid 7.8. X ray of madie right hand revealed narrowing of the radio-carpal and carpal- metacarpal joints. Probable erosion of the ulnar styloid and chondrocalcinosis (seen in the oblique view). MCPs normal Narrowing of the 2nd PIP and left 2nd and 3rd DIPs, probably related to degenerative arthritis. - History Source History Provided By: Patient - Past Medical History Cardio/Vascular: Yes: AFIB, CHF, HTN, Hyperlipdemia, Murmur, Pulmonary Hypertension, Other (tricuspid insuficiency) Endocrine: Yes: Hypothyroidism - Alcohol/Substance Use Hx Alcohol Use: No - Smoking History Smoking history: Former smoker Have you smoked in the past 12 months: No Aproximately how many cigarettes per day: 0 If you are a former smoker, when did you quit?: 1953 - Social History Usual Living Arrangement: Alone ADL: Independent Occupation: retired History of Recent Travel: No Home Medications - Allergies Allergies/Adverse Reactions: Allergies Allergy/AdvReac Type Severity Reaction Status Date / Time cefuroxime Allergy Intermediate rash on Verified 07/13/17 09:05 legs - Home Medications Home Medications: Ambulatory Orders Digoxin [Lanoxin -] 0.125 mg PO DAILY 05/24/15 Furosemide 40 mg PO DAILY 05/24/15 Levothyroxine [Synthroid -] 50 mcg PO DAILY 05/24/15 Losartan Potassium [Cozaar -] 25 mg PO DAILY 05/24/15 Simvastatin [Zocor -] 10 mg PO HS 05/24/15 Metoprolol Succinate [Toprol XL -] 50 mg PO BID tab.sr.24h 05/31/15 Cholecalciferol (Vitamin D3) [Vitamin D3] 1,000 unit PO DAILY 07/13/17 Cyanocobalamin (Vitamin B-12) [Vitamin B-12] 1,000 mcg PO DAILY 07/13/17 Spironolactone 25 mg PO DAILY 07/13/17 Tamsulosin HCl 0.4 mg PO DAILY 07/13/17 Warfarin Na [Coumadin -] 3 mg PO MOWEFR 07/13/17 Warfarin Sodium [Coumadin] 6 mg PO SUTUTHSA 07/13/17 Review of Systems - Review of Systems Constitutional: reports: Malaise Eyes: reports: No Symptoms HENT: reports: No Symptoms Neck: reports: No Symptoms Cardiovascular: reports: No Symptoms Respiratory: reports: No Symptoms Gastrointestinal: reports: No Symptoms Musculoskeletal: reports: Other (HPI) Physical Exam Vital Signs: Vital Signs Temperature 98.0 F 07/14/17 09:12 Pulse Rate 81 07/14/17 09:50 Respiratory Rate 18 07/14/17 09:12 Blood Pressure 152/75 07/14/17 09:12 O2 Sat by Pulse Oximetry (%) 99 07/14/17 08:00 Constitutional: Yes: Moderate Distress Eyes: Yes: WNL HENT: Yes: WNL Neck: Yes: WNL Cardiovascular: Yes: WNL Respiratory: Yes: WNL Gastrointestinal: Yes: WNL Musculoskeletal: Yes: Other (Swelling of the right elbow, right wrist, right 5th MCP and all PIPs in the right hand. SSwelling of the left wrist left 2nd MCP and all PIPs in the left hand.) Labs: CBC, BMP 07/14/17 06:30 07/14/17 06:30 Laboratory Tests 07/13/17 07/14/17 10:13 06:30 ESR 59 H 62 H Problem List - Problems (1) Inflammatory polyarthropathy Assessment/Plan: Acute systemic polyarthritis. It is unlikely to be related to sepsis ( cellulitis). Etiology to be determined. Rule out rheumatoid arthritis or other etiology. Plan: Rheumatoid factor, LAVONNE, CCP, UA. Depomedrol 40 mg IM. Start Prednisone 10 mg/d. Naproxen 375 mg BID. Code(s): M06.4 - INFLAMMATORY POLYARTHROPATHY
--- NOTE | 2017-07-14 15:22 | PN ---
Teaching Attending Note Name of Resident: Ermias Sotelo ATTENDING PHYSICIAN STATEMENT I saw and evaluated the patient. I reviewed the resident's note and discussed the case with the resident. I agree with the resident's findings and plan as documented. SUBJECTIVE: now the other wrist is swollen! and the hand is improved elbow now swollen diarrhea resolving OBJECTIVE: Vital Signs Period Temp Pulse Resp BP Sys/Edwards Pulse Ox Last 24 Hr 97.5 F-98.5 F 67-81 18-20 119-155/62-86 99-99 cor-rrr lungs clear abd soft,nt ext left wrist, right elbow with swelling, right hand less swollen, less red CBC, BMP 07/14/17 06:30 07/14/17 06:30 Microbiology 07/13/17 10:13 Blood - Peripheral Venous Blood Culture - Preliminary NO GROWTH OBTAINED AFTER 24 HOURS, INCUBATION TO CONTINUE FOR 4 DAYS. 07/13/17 10:13 Blood - Peripheral Venous Blood Culture - Preliminary NO GROWTH OBTAINED AFTER 24 HOURS, INCUBATION TO CONTINUE FOR 4 DAYS. ASSESSMENT AND PLAN: most likely has inflammatory arthritis doubt cellulitis will d/c antibiotics stools improving f/u stool studies Problem List - Problems (1) Cellulitis Code(s): L03.90 - CELLULITIS, UNSPECIFIED Qualifiers: Site of cellulitis: other site Qualified Code(s): L03.818 - Cellulitis of other sites (2) Diarrhea Code(s): R19.7 - DIARRHEA, UNSPECIFIED
[2017-07-14] MEDS: predniSONE 10 MG TABLET (UD) PO SCH (15:36)
--- NOTE | 2017-07-14 16:26 | PN ---
Progress Note, Physician Chief Complaint: ASLEEP/COMFORTABLE EVENTS AND NOTES REVIEWED - Current Medication List Current Medications: Active Medications Acetaminophen (Tylenol -) 650 mg PO Q6H PRN PRN Reason: PAIN Last Admin: 07/14/17 15:31 Dose: 650 mg Atorvastatin Calcium (Lipitor -) 20 mg PO HS [facility] Last Admin: 07/13/17 21:51 Dose: 20 mg Digoxin (Lanoxin -) 0.125 mg PO DAILY@0800 [facility] Last Admin: 07/14/17 09:50 Dose: 0.125 mg Furosemide (Lasix -) 40 mg PO DAILY [facility] Last Admin: 07/14/17 09:50 Dose: 40 mg Levothyroxine Sodium (Synthroid -) 50 mcg PO DAILY@0700 [facility] Last Admin: 07/14/17 06:22 Dose: 50 mcg Losartan Potassium (Cozaar -) 25 mg PO DAILY@0800 [facility] Last Admin: 07/14/17 09:50 Dose: 25 mg Metoprolol Succinate (Toprol Xl -) 50 mg PO BID [facility] Last Admin: 07/14/17 09:50 Dose: 50 mg Naproxen (Naprosyn -) 375 mg PO BID [facility] Potassium Chloride (K-Dur -) 20 meq PO DAILY@0800 [facility] Last Admin: 07/14/17 09:50 Dose: 20 meq Prednisone (Deltasone -) 10 mg PO DAILY [facility] Last Admin: 07/14/17 15:36 Dose: 10 mg Spironolactone (Aldactone -) 25 mg PO DAILY [facility] Last Admin: 07/14/17 09:50 Dose: 25 mg Tamsulosin HCl (Flomax -) 0.4 mg PO DAILY@0830 [facility] Last Admin: 07/14/17 09:50 Dose: 0.4 mg - Objective Vital Signs: Vital Signs Temperature 98.5 F 07/14/17 13:00 Pulse Rate 81 07/14/17 13:00 Respiratory Rate 20 07/14/17 13:00 Blood Pressure 155/76 07/14/17 13:00 O2 Sat by Pulse Oximetry (%) 99 07/14/17 08:00 Constitutional: Yes: No Distress Eyes: Yes: WNL HENT: Yes: WNL Neck: Yes: WNL Cardiovascular: Yes: Murmur, Other Respiratory: Yes: WNL Gastrointestinal: Yes: WNL Genitourinary: Yes: WNL Musculoskeletal: Yes: Joint Swelling, Muscle Pain, Muscle Weakness Extremities: Yes: Erythema Edema: Yes Edema: LUE: 1+, RUE: 1+ Peripheral Pulses WNL: Yes Integumentary: Yes: Erythema Wound/Incision: Yes: Clean/Dry Neurological: Yes: WNL ...Motor Strength: LUE, RUE Psychiatric: Yes: WNL Labs: CBC, BMP 07/14/17 06:30 07/14/17 06:30 INR, PTT INR 3.35 (0.82-1.09) H 07/14/17 06:30 Problem List - Problems (1) Cellulitis Code(s): L03.90 - CELLULITIS, UNSPECIFIED Qualifiers: Site of cellulitis: other site Qualified Code(s): L03.818 - Cellulitis of other sites (2) DRUJ (distal radioulnar joint) arthrosis, primary Code(s): M19.039 - PRIMARY OSTEOARTHRITIS, UNSPECIFIED WRIST Qualifiers: Laterality: right Qualified Code(s): M19.031 - Primary osteoarthritis, right wrist (3) Inflammatory polyarthropathy Code(s): M06.4 - INFLAMMATORY POLYARTHROPATHY (4) Pulmonary hypertension Code(s): I27.2 - OTHER SECONDARY PULMONARY HYPERTENSION * DO NOT USE * (5) Tricuspid regurgitation Code(s): I07.1 - RHEUMATIC TRICUSPID INSUFFICIENCY Assessment/Plan RHEUMATOLOGY EVAL ID WORKUP CHECK CULTURES CHECK LABS IV ABX PER ID COLCHICINE DVT PROPHYLAXIS OOB TO CHAIR PAIN CONTROL
--- NOTE | 2017-07-14 17:38 | CON.CARD ---
Cardiology Consult (text) - Consultation Consultation Note: cc: right hand swelling. 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 sx's for 2-3 days. assoc with difficulty moving right hand. He denies any trauma or injury to his extremity states no sx's occurring in left hand as well. + diarrhea, No cp, palps, dizzy, loc, pnd, orthopnea. No f/c/s, n/v, rash, nasal congestion, HAYNES, vision changes, wt loss, pmh: per hpi psh: nc ros: per hpi; fam: no premature cad social: ex tob meds: Ambulatory Orders Digoxin [Lanoxin -] 0.125 mg PO DAILY 05/24/15 Furosemide 40 mg PO DAILY 05/24/15 Levothyroxine [Synthroid -] 50 mcg PO DAILY 05/24/15 Losartan Potassium [Cozaar -] 25 mg PO DAILY 05/24/15 Simvastatin [Zocor -] 10 mg PO HS 05/24/15 Metoprolol Succinate [Toprol XL -] 50 mg PO BID tab.sr.24h 05/31/15 Cholecalciferol (Vitamin D3) [Vitamin D3] 1,000 unit PO DAILY 07/13/17 Cyanocobalamin (Vitamin B-12) [Vitamin B-12] 1,000 mcg PO DAILY 07/13/17 Spironolactone 25 mg PO DAILY 07/13/17 Tamsulosin HCl 0.4 mg PO DAILY 07/13/17 Warfarin Na [Coumadin -] 3 mg PO MOWEFR 07/13/17 Warfarin Sodium [Coumadin] 6 mg PO SUTUTHSA 07/13/17 Current Medications Acetaminophen (Tylenol -) 650 mg PO Q6H PRN PRN Reason: PAIN Last Admin: 07/14/17 15:31 Dose: 650 mg Atorvastatin Calcium (Lipitor -) 20 mg PO HS [facility] Last Admin: 07/13/17 21:51 Dose: 20 mg Digoxin (Lanoxin -) 0.125 mg PO DAILY@0800 [facility] Last Admin: 07/14/17 09:50 Dose: 0.125 mg Furosemide (Lasix -) 40 mg PO DAILY [facility] Last Admin: 07/14/17 09:50 Dose: 40 mg Levothyroxine Sodium (Synthroid -) 50 mcg PO DAILY@0700 [facility] Last Admin: 07/14/17 06:22 Dose: 50 mcg Losartan Potassium (Cozaar -) 25 mg PO DAILY@0800 [facility] Last Admin: 07/14/17 09:50 Dose: 25 mg Metoprolol Succinate (Toprol Xl -) 50 mg PO BID [facility] Last Admin: 07/14/17 09:50 Dose: 50 mg Naproxen (Naprosyn -) 375 mg PO BID [facility] Potassium Chloride (K-Dur -) 20 meq PO DAILY@0800 [facility] Last Admin: 07/14/17 09:50 Dose: 20 meq Prednisone (Deltasone -) 10 mg PO DAILY [facility] Last Admin: 07/14/17 15:36 Dose: 10 mg Spironolactone (Aldactone -) 25 mg PO DAILY [facility] Last Admin: 07/14/17 09:50 Dose: 25 mg Tamsulosin HCl (Flomax -) 0.4 mg PO DAILY@0830 [facility] Last Admin: 07/14/17 09:50 Dose: 0.4 mg Vital Signs - 24 hr 07/13/17 07/14/17 07/14/17 20:41 00:42 06:00 Temperature 97.5 F L 97.8 F Pulse Rate 67 80 Respiratory 20 20 20 Rate Blood Pressure 150/86 147/84 O2 Sat by Pulse 99 Oximetry (%) 07/14/17 07/14/17 07/14/17 08:00 09:12 09:50 Temperature 98.0 F Pulse Rate 81 81 Respiratory 18 Rate Blood Pressure 152/75 O2 Sat by Pulse 99 Oximetry (%) 07/14/17 13:00 Temperature 98.5 F Pulse Rate 81 Respiratory 20 Rate Blood Pressure 155/76 O2 Sat by Pulse Oximetry (%) Intake & Output 07/12/17 07/13/17 07/14/17 07/15/17 07:59 07:59 07:59 07:59 Intake Total 650 Balance 650 Weight 170 lb 8 oz nad, no jvd irreg, s1s2 no mrg ctab, nl eff aaox3 no le e/c/c erythema, swelling and tenderness over the joints of the right hand abd nt nd pos bs no diaphoresis/jaundice pos dp/pt CBC, BMP 05/08/18 06:30 07/14/17 06:30 Laboratory Tests 07/13/17 07/13/17 10:13 10:13 INR 3.09 H D Total Bilirubin 2.7 H D AST 20 D ALT 24 D Alkaline Phosphatase 143 H D Albumin 3.7 D 07/14/17 06:[address] UE: soft tissue swelling abd u/s: no acute pathology Echo 05/22: EF severely reduced; mild RV hypo; sev MR/TR; RVSP 50-60 echo 04/2014: mod dil lv, lvef 35%, nl rv s/f, mod mr, mod-sev tr, mod ar, dilated ivc, sev phtn (similar to 2012) A/p 79 m hx systolic chf (lvef 35%), NICM (cath 05/2010, non obs cad), htn, afib ( on coumadin), hld, 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 Right hand swelling/pain. - edema isolated to joints of upper extremity. Does not appear to be volume overloaded. Low suspicion for cardiac etiology. - rheum/id following. 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 - Patient needs outpatient cardiology follow, for further evaluation of EF and ongoing managment. - appears euvolemic, con't current HF regimen AFib - con't ac with coumadin. inr dosing per pmd - rate controlled on current regimen. dig level ok. HTN - overall reasonable control on current regimen. ab lfts's - no signs of hepatic congestion/ascites. per pmd.
[2017-07-14] MEDS ORDERED: PT OWN MED DRAWER 7, Y5N ONE ×2 (18:31→20:58)
[2017-07-14] MEDS: ATORVASTATIN CA 20 MG TABLET (FP) PO SCH (21:29)
[2017-07-14] MEDS: NAPROXEN 375 MG TABLET (FP) PO SCH (21:30)
[2017-07-15] MEDS: LEVOTHYROXINE NA 50 MCG TABLET (FP) PO SCH (06:11)
[2017-07-15 07:36] VITALS: PULSE 81
[2017-07-15] MEDS: DIGOXIN 0.125 MG TABLET (FP) PO SCH (08:31)
[2017-07-15] MEDS: POTASSIUM CHLORIDE TABS 20 MEQ TABLET.ER (FP) PO SCH (08:32)
[2017-07-15] MEDS: TAMSULOSIN HCL 0.4 MG CAP.ER.24H (FP) PO SCH (08:32)
[2017-07-15] MEDS: LOSARTAN POTASSIUM 25 MG TABLET PO SCH (08:32)
[2017-07-15 09:07] VITALS: BP 152/80; TEMP 98.1
[2017-07-15] MEDS ORDERED: PT OWN MED DRAWER 7, Y5N ONE (10:11)
--- NOTE | 2017-07-15 10:22 | PN ---
Progress Note, Physician Chief Complaint: right wrist pain and swelling History of Present Illness: 82 yo RHD male PMH CHF, AFIB on warfarin, tricuspid insufficiency, (+Coumadin; + Digoxin), HTN, hypothyroidism, hyperlipidemia, anemia (iron deficient), who presents complaining of a 2-3 day history of right hand swelling and pain. He has had similar swelling in the opposite extremity that resolved with out specific management. He denies any antecedent trauma to his right hand wrist or arm but reports he has also had difficulty moving it over this same time period. Denies any prior history of gout. Denies any history of fracture or dislocation. We were asked to assess. - Current Medication List Current Medications: Active Medications Acetaminophen (Tylenol -) 650 mg PO Q6H PRN PRN Reason: PAIN Last Admin: 07/14/17 15:31 Dose: 650 mg Atorvastatin Calcium (Lipitor -) 20 mg PO HS [facility] Last Admin: 07/14/17 21:29 Dose: 20 mg Digoxin (Lanoxin -) 0.125 mg PO DAILY@0800 [facility] Last Admin: 07/15/17 08:31 Dose: 0.125 mg Furosemide (Lasix -) 40 mg PO DAILY [facility] Last Admin: 07/14/17 09:50 Dose: 40 mg Levothyroxine Sodium (Synthroid -) 50 mcg PO DAILY@0700 [facility] Last Admin: 07/15/17 06:11 Dose: 50 mcg Losartan Potassium (Cozaar -) 25 mg PO DAILY@0800 [facility] Last Admin: 07/15/17 08:32 Dose: 25 mg Metoprolol Succinate (Toprol Xl -) 50 mg PO BID [facility] Last Admin: 07/14/17 21:29 Dose: 50 mg Naproxen (Naprosyn -) 375 mg PO BID [facility] Last Admin: 07/14/17 21:30 Dose: 375 mg Potassium Chloride (K-Dur -) 20 meq PO DAILY@0800 [facility] Last Admin: 07/15/17 08:32 Dose: 20 meq Prednisone (Deltasone -) 10 mg PO DAILY [facility] Last Admin: 07/14/17 15:36 Dose: 10 mg Spironolactone (Aldactone -) 25 mg PO DAILY [facility] Last Admin: 07/14/17 09:50 Dose: 25 mg Tamsulosin HCl (Flomax -) 0.4 mg PO DAILY@0830 [facility] Last Admin: 07/15/17 08:32 Dose: 0.4 mg - Objective Vital Signs: Vital Signs Temperature 98.1 F 07/15/17 09:06 Pulse Rate 81 07/15/17 09:06 Respiratory Rate 18 07/15/17 09:06 Blood Pressure 152/80 07/15/17 09:06 O2 Sat by Pulse Oximetry (%) 99 07/15/17 00:00 Constitutional: Yes: Well Nourished, No Distress, Calm Eyes: Yes: Conjunctiva Clear, EOM Intact HENT: Yes: Atraumatic, Normocephalic Neck: Yes: Supple, Trachea Midline Cardiovascular: Yes: Regular Rate and Rhythm, S1, S2 Respiratory: Yes: Regular, CTA Bilaterally Gastrointestinal: Yes: Normal Bowel Sounds, Soft. No: Tenderness, Tenderness, Epigastrium ...Rectal Exam: Yes: Deferred Genitourinary: No: CVA Tenderness - Left, CVA Tenderness - Right Extremities: Yes: Erythema, Other (Right wrist edema is greatly reduced. Motion is imporved and). No: Cool, Cyanosis Edema: Yes Edema: RUE: Trace Peripheral Pulses WNL: Yes Peripheral Pulses: Left Radial: 2+, Right Radial: 2+, Left Doralis Pedis: 2+, Right Dorsalis Pedis: 2+ Integumentary: No: Jaundice, Rash Neurological: Yes: Alert, Oriented Psychiatric: Yes: Alert, Oriented Labs: CBC, BMP 07/14/17 06:30 07/14/17 06:30 INR, PTT INR 3.35 (0.82-1.09) H 07/14/17 06:30 Problem List - Problems (1) DRUJ (distal radioulnar joint) arthrosis, primary Code(s): M19.039 - PRIMARY OSTEOARTHRITIS, UNSPECIFIED WRIST Qualifiers: Laterality: right Qualified Code(s): M19.031 - Primary osteoarthritis, right wrist (2) Ulnar impingement syndrome of right upper extremity Code(s): M25.831 - OTHER SPECIFIED JOINT DISORDERS, RIGHT WRIST (3) Congestive heart failure Code(s): I50.9 - HEART FAILURE, UNSPECIFIED (4) Hypothyroid Code(s): E03.9 - HYPOTHYROIDISM, UNSPECIFIED (5) Acute exacerbation of CHF (congestive heart failure) Code(s): I50.9 - HEART FAILURE, UNSPECIFIED (6) Edema Code(s): R60.9 - EDEMA, UNSPECIFIED (7) Hyperlipidemia Code(s): E78.5 - HYPERLIPIDEMIA, UNSPECIFIED (8) Hypothyroid Code(s): E03.9 - HYPOTHYROIDISM, UNSPECIFIED Qualifiers: Hypothyroidism type: unspecified hypothyroidism (9) Pulmonary hypertension Code(s): I27.2 - OTHER SECONDARY PULMONARY HYPERTENSION * DO NOT USE * (10) Venous stasis of both lower extremities Code(s): I87.8 - OTHER SPECIFIED DISORDERS OF VEINS
[2017-07-15] MEDS: predniSONE 10 MG TABLET (UD) PO SCH (10:26)
[2017-07-15] MEDS: NAPROXEN 375 MG TABLET (FP) PO SCH (10:26)
[2017-07-15] MEDS: SPIRONOLACTONE 25 MG TABLET (FP) PO SCH (10:26)
[2017-07-15] MEDS: FUROSEMIDE 40 MG TABLET (FP) PO SCH (10:26)
--- NOTE | 2017-07-15 10:33 | DS ---
Physical Examination Vital Signs: Vital Signs Temperature 98.1 F 07/15/17 09:06 Pulse Rate 81 07/15/17 09:06 Respiratory Rate 18 07/15/17 09:06 Blood Pressure 152/80 07/15/17 09:06 O2 Sat by Pulse Oximetry (%) 99 07/15/17 00:00 Findings/Remarks: AWAKE ALERT, NAD WOULD LIKE TO GO HOME Constitutional: Yes: No Distress Eyes: Yes: WNL HENT: Yes: WNL Neck: Yes: WNL Cardiovascular: Yes: WNL Respiratory: Yes: WNL Gastrointestinal: Yes: WNL Renal/: Yes: WNL Musculoskeletal: Yes: Joint Swelling, Muscle Pain Extremities: Yes: Erythema Edema: Yes Edema: RUE: 1+ Peripheral Pulses WNL: Yes Integumentary: Yes: Erythema Wound/Incision: Yes: Clean/Dry Neurological: Yes: WNL ...Motor Strength: WNL Psychiatric: Yes: WNL Labs: CBC, BMP 07/14/17 06:30 07/14/17 06:30 Discharge Summary Reason For Visit: CELLULITIS Current Active Problems Cellulitis (Acute) Congestive heart failure (Acute) DRUJ (distal radioulnar joint) arthrosis, primary (Acute) Diarrhea (Acute) Hypothyroid (Acute) Inflammatory polyarthropathy (Acute) Total bilirubin, elevated (Acute) Ulnar impingement syndrome of right upper extremity (Acute) Procedures: Principal: SONO/XRAYS Hospital Course: ADMITTED FOR RIGHT ARM CELLULITIS, WORKUP BY INFECTIOUS DISEASE, HAND SURGERY AND RHEUMATOLOGY ALL DONE WILL F/U OUT PATIENT WITH PMD/RHEUM GI OUTPATIENT CONSULT FOR ELEVATED TOTAL BILIRUBIN SONO OF GI NORMAL Condition: Good - Instructions Diet, Activity, Other Instructions: GI CONSULT OUTPATIENT ELEVATED TOTAL BILI SEE YOUR PMD IN 2 DAYS Referrals: Hannah Ho MD [Primary Care Provider] - Disposition: VNS/HOME HEALTH CARE - Home Medications Comprehensive Discharge Medication List: Ambulatory Orders Digoxin [Lanoxin -] 0.125 mg PO DAILY 05/24/15 Furosemide 40 mg PO DAILY 05/24/15 Levothyroxine [Synthroid -] 50 mcg PO DAILY 05/24/15 Losartan Potassium [Cozaar -] 25 mg PO DAILY 05/24/15 Simvastatin [Zocor -] 10 mg PO HS 05/24/15 Metoprolol Succinate [Toprol XL -] 50 mg PO BID tab.sr.24h 05/31/15 Cholecalciferol (Vitamin D3) [Vitamin D3] 1,000 unit PO DAILY 07/13/17 Cyanocobalamin (Vitamin B-12) [Vitamin B-12] 1,000 mcg PO DAILY 07/13/17 Spironolactone 25 mg PO DAILY 07/13/17 Tamsulosin HCl 0.4 mg PO DAILY 07/13/17 Warfarin Na [Coumadin -] 3 mg PO MOWEFR 07/13/17 Warfarin Sodium [Coumadin] 6 mg PO SUTUTHSA 07/13/17
--- NOTE | 2017-07-15 15:08 | PN ---
Progress Note, Physician History of Present Illness: Infectious disease follow up: Patient seen and examined at bedside. hand erythema and swelling greatly improved today as per patient. - Objective Vital Signs: Vital Signs Temperature 98.1 F 07/15/17 09:06 Pulse Rate 81 07/15/17 09:06 Respiratory Rate 18 07/15/17 09:06 Blood Pressure 152/80 07/15/17 09:06 O2 Sat by Pulse Oximetry (%) 99 07/15/17 08:00 Constitutional: Yes: Well Nourished, No Distress, Calm HENT: Yes: Atraumatic, Normocephalic Cardiovascular: Yes: Regular Rate and Rhythm, S1, S2. No: JVD, Gallop, Murmur, Rub Respiratory: Yes: Regular, CTA Bilaterally Gastrointestinal: Yes: Normal Bowel Sounds, Soft Musculoskeletal: Yes: Other (hand erythema, stiffness and tenderness improved today. Left hand welling almost resolved.) Edema: Yes Edema: RUE: Trace Neurological: Yes: Alert, Oriented, Other (patient hard of hearing) Psychiatric: Yes: Alert, Oriented Labs: CBC, BMP 07/14/17 06:30 07/14/17 06:30 INR, PTT INR 3.35 (0.82-1.09) H 07/14/17 06:30 Assessment/Plan The patient is an 82 yo m w/ PMH CHF. Afib on coumadin, triscuspid insufficiency , HTN who comes into the ER c/o right hand swelling for 2 days. -inflammation greatly improved after steroids -Management as per Rheumatology. -Stool cultures NGTD -C.Diff pending -case d/w Dr. Torres
[2017-07-17 00:06] LABS: COMPLEMENT TOTAL(CH50) > 63 U/mL (42-60); CYCLIC CITRULLINE PEPTIDE AB 5 units (0-19)
== END 2017-07-15 13:48 | disposition home health service (06) ==
LOC: JER 09:03 → JERBED 13:44 → J5S 15:41
PROVIDERS: ADMIT Student in an Organized Health Care Education/Training Program; ATTEND Student in an Organized Health Care Education/Training Program
DX: L03.818 Cellulitis of other sites (principal); I48.2 Chronic atrial fibrillation; I50.9 Heart failure, unspecified; I10 Essential (primary) hypertension; E03.9 Hypothyroidism, unspecified; E78.5 Hyperlipidemia, unspecified; Z79.01 Long term (current) use of anticoagulants; Z88.1 Allergy status to other antibiotic agents; Z87.891 Personal history of nicotine dependence; R19.7 Diarrhea, unspecified; M19.031 Primary osteoarthritis, right wrist; M25.831 Other specified joint disorders, right wrist; I27.20 Pulmonary hypertension, unspecified; I87.8 Other specified disorders of veins; M06.4 Inflammatory polyarthropathy; I07.1 Rheumatic tricuspid insufficiency; R60.9 Edema, unspecified
CPT/HCPCS: 36415; 73130-TC-RT-FY; 73200-TC-RT; 76705-TC; 80053; 80162; 82977; 84439; 84443; 84550; 85025; 85027; 85610; 85651; 86140; 86162; 86200; 86225; 86431; 87040; 87045; 87046; 87205; 87324; 87449; 93971; 99284-25; G0378

== ENCOUNTER 2018-09-16 22:44 | Inpatient (IN) | payer BC, OTHER ==
--- NOTE | 2018-09-16 23:36 | PDOC ---
History of Present Illness - General Stated Complaint: WEAKNESS - History of Present Illness Initial Comments: 09/17/18 01:00 83y/O M with hx of chf,htn, afib with pacemaker, BPH and hernia presents to the ED with 2 days of weakness. Pt was found at home by grandson today unable to get up from the toilet. He was unable to stand and bear his own weight and was brought in by EMS. He is not the best historian and is hard of hearing. He is complaining of weakness in both legs and a tremor in his right arm. He denies any headache,chest pain, shortness of breath 09/17/18 21:03 Past History - Past Medical History Allergies/Adverse Reactions: Allergies Allergy/AdvReac Type Severity Reaction Status Date / Time cefuroxime Allergy Intermediate rash on Verified 07/13/17 09:05 legs Home Medications: Ambulatory Orders Digoxin [Lanoxin -] 0.125 mg PO DAILY 05/24/15 Furosemide 40 mg PO DAILY 05/24/15 Levothyroxine [Synthroid -] 50 mcg PO DAILY 05/24/15 Losartan Potassium [Cozaar -] 25 mg PO DAILY 05/24/15 Simvastatin [Zocor -] 10 mg PO HS 05/24/15 Metoprolol Succinate [Toprol XL -] 50 mg PO BID tab.sr.24h 05/31/15 Tamsulosin HCl 0.4 mg PO DAILY 07/13/17 Warfarin Na [Coumadin -] 3 mg PO MOWEFR 07/13/17 Anemia: No Asthma: No Cancer: No Cardiac Disorders: Yes (atrial fib) CVA: No COPD: No CHF: Yes (10 yeas ago) Dementia: No Diabetes: No GI Disorders: No Disorders: No HTN: Yes Hypercholesterolemia: No Liver Disease: No Seizures: No Thyroid Disease: Yes - Surgical History Neurologic Surgery: No - Suicide/Smoking/Psychosocial Hx Smoking Status: No Smoking History: Former smoker Have you smoked in the past 12 months: No Number of Cigarettes Smoked Daily: 0 If you are a former smoker, when did you quit?: 1953 Hx Alcohol Use: No Drug/Substance Use Hx: No Substance Use Type: None Hx Substance Use Treatment: No *Physical Exam - Physical Exam Respiratory/Chest: positive: Rales, Other (has a pacemaker). negative: Respiratory Distress, Labored Respiration Cardiovascular: positive: Regular Rhythm, Regular Rate, S1, S2. negative: JVD, Murmur Gastrointestinal/Abdominal: positive: Normal Bowel Sounds, Soft. negative: Pulsatile Mass, Increased Bowel Sounds, Protuberent, Distended, Guarding, Rebound, Tenderness Rectal Exam: positive: normal rectal tone, other (Some redness around the anus) Integumentary: positive: Normal Color, Dry, Warm Neurologic: positive: art specialist II-XII NML intact, Alert, Normal Response. negative: Motor Strength 5/5 (motor strength 4/5 on left 3/5 on right lower extremities. Tremor in his right hand at rest. ), Numbness, Sensory Deficit, Disoriented ED Treatment Course - LABORATORY CBC & Chemistry Diagram: 09/17/18 00:05 09/17/18 00:05 Medical Decision Making - Medical Decision Making 09/17/18 00:14 83y/O M with hx of chf,htn, afib with pacemaker and BPH presents to the ED with 2 days of weakness. Labs/Imaging cbc,cmp,cxr,ua, urine culture, stool guaic,bnp,troponin, cpk 09/17/18 00:59 Labs show elevated Bun/Cr , 47.2/1.9suggests NABIL BNP is elevated Troponin elevated, EKG no ST elevations on EKG Ct abdomen without contrast ordered due to NABIL. 40mg IV lasix given for fluid overload. 09/17/18 02:25 09/17/18 02:29 Admitted to medicine. *DC/Admit/Observation/Transfer Diagnosis at time of Disposition: CHF exacerbation Qualifiers: Heart failure type: unspecified Qualified Code(s): I50.9 - Heart failure, unspecified - Discharge Dispostion Condition at time of disposition: Stable Decision to Admit order: Yes - Referrals - Patient Instructions - Post Discharge Activity
--- NOTE | 2018-09-16 23:50 | PDOC ---
Documentation entered by Markos Watters SCRIBE, acting as scribe for Haroon Briones MD. Haroon Briones MD: This documentation has been prepared by the Duong olivera Daniel, SCRIBE, under my direction and personally reviewed by me in its entirety. I confirm that the documentation accurately reflects all work, treatment, procedures, and medical decision making performed by me. Attending Attestation - Resident Resident Name: HiralKeyana - ED Attending Attestation I have performed the following: I have examined & evaluated the patient, The case was reviewed & discussed with the resident, I agree w/resident's findings & plan, Exceptions are as noted - HPI HPI: 09/16/18 23:45 The patient is an 83 year old male with a past medical history of CHF, HTN, hypothyroidism, afib (s/p pacemaker), and BPH here today for evaluation of general weakness. History provided by patient and family. The patient reports that he has had 2 days of weakness that he mostly feels in his legs. Grandson reports that he had to help the patient get up from the toilet today and noticed some blood around the patients anus. Family also notes that the patient has had a tremor. Patient denies headache, lightheadedness. Denies fever, chills. Denies chest pain, shortness of breath. Denies nausea, vomiting, diarrhea, abdominal pain. Allergies: cefuroxime PCP: Hannah Ho - Physicial Exam PE: 09/17/18 07:08 Agree with exam as documented by resident - Medical Decision Making 09/17/18 07:09 Generalized weakness electrolyte derangement? CHF? less likely acs, neurologic inguinal hernia not incarcerated/strangulated chf exacerbation admit diuresis
[2018-09-17 01:05] LABS: BASO % 0.3 % (0-2.0); HEMATOCRIT 36.7 % (35.4-49); HEMOGLOBIN 12.5 GM/dL (11.7-16.9); LYMPH % 5.1 % (8-40); MCH 30.8 pg (25.7-33.7); MCHC 33.9 g/dl (32.0-35.9); MEAN CELL VOLUME 90.8 fl (80-96); MEAN PLT VOLUME 11.1 fl (7.5-11.1); MONO % 12.1 % (3.8-10.2); NEUT % 82.5 % (42.8-82.8); PLATELET COUNT 165 K/MM3 (134-434); RBC 4.04 M/mm3 (4.00-5.60); RDW 14.8 % (11.9-15.9); WHITE BLOOD COUNT 12.5 K/mm3 (4.0-10.0)
[2018-09-17 01:10] LABS: ALBUMIN 3.4 g/dl (3.4-5.0); BILIRUBIN,TOTAL 5.3 mg/dL (0.2-1); BLOOD UREA NITROGEN 47.2 mg/dL (7-18); CALCIUM 8.9 mg/dL (8.5-10.1); CREATININE 1.9 mg/dL (0.55-1.3); POTASSIUM 3.4 mmol/L (3.5-5.1); TOT PROT 7.5 g/dl (6.4-8.2)
[2018-09-17] MEDS ORDERED: FUROSEMIDE 40 MG/4 ML INJECTABLE VIAL IVPUSH ONE (03:02)
[2018-09-17] MEDS ORDERED: FUROSEMIDE 40 MG/4 ML INJECTABLE VIAL ONE (03:17)
--- NOTE | 2018-09-17 05:47 | HP ---
Admitting History and Physical - Primary Care Physician PCP: Hannah Ho - Admission Chief Complaint: Weakness, SOB History of Present Illness: This is a 83 y/o man with a PMHx of HTN, CHF, Afib, PPM. Who presents to the ED with generalized weakness and SOB. Patient reports increased YA. Patient admits to not taking his medications for 2 days. Patient denies fever, chills, Shanks, CP, palpitations, AP, N/V/D, constipation. History Source: Patient Limitations to Obtaining History: No Limitations - Past Medical History Cardiovascular: Yes: AFIB, CHF, HTN, Hyperlipdemia, Murmur, Pulmonary Hypertension, Other (tricuspid insuficiency) Endocrine: Yes: Hypothyroidism - Past Surgical History Past Surgical History: Yes: Hernia Repair - Smoking History Smoking history: Former smoker Have you smoked in the past 12 months: No Aproximately how many cigarettes per day: 0 If you are a former smoker, when did you quit?: 1953 - Alcohol/Substance Use Hx Alcohol Use: No History of Substance Use: reports: None - Social History ADL: Independent Occupation: retired History of Recent Travel: No Home Medications - Allergies Allergies/Adverse Reactions: Allergies Allergy/AdvReac Type Severity Reaction Status Date / Time cefuroxime Allergy Intermediate rash on Verified 07/13/17 09:05 legs - Home Medications Home Medications: Ambulatory Orders Digoxin [Lanoxin -] 0.125 mg PO DAILY 05/24/15 Furosemide 40 mg PO DAILY 05/24/15 Levothyroxine [Synthroid -] 50 mcg PO DAILY 05/24/15 Losartan Potassium [Cozaar -] 25 mg PO DAILY 05/24/15 Simvastatin [Zocor -] 10 mg PO HS 05/24/15 Metoprolol Succinate [Toprol XL -] 50 mg PO BID tab.sr.24h 05/31/15 Cholecalciferol (Vitamin D3) [Vitamin D3] 1,000 unit PO DAILY 07/13/17 Cyanocobalamin (Vitamin B-12) [Vitamin B-12] 1,000 mcg PO DAILY 07/13/17 Spironolactone 25 mg PO DAILY 07/13/17 Tamsulosin HCl 0.4 mg PO DAILY 07/13/17 Warfarin Na [Coumadin -] 3 mg PO MOWEFR 07/13/17 Warfarin Sodium [Coumadin] 6 mg PO SUTUTHSA 07/13/17 Acetaminophen [Tylenol .Regular Strength -] 650 mg PO Q6H PRN tablet 07/15/17 predniSONE [Deltasone -] 10 mg PO DAILY #30 tablet 07/15/17 Family Disease History - Family Disease History Family History: Unable to Obtain Review of Systems - Review of Systems Constitutional: reports: Weakness Eyes: reports: No Symptoms HENT: reports: No Symptoms Neck: reports: No Symptoms Cardiovascular: reports: Shortness of Breath Respiratory: reports: SOB Gastrointestinal: reports: No Symptoms Genitourinary: reports: No Symptoms Breasts: reports: No Symptoms Reported Musculoskeletal: reports: No Symptoms Integumentary: reports: No Symptoms Neurological: reports: No Symptoms Endocrine: reports: No Symptoms Hematology/Lymphatic: reports: No Symptoms Psychiatric: reports: No Symptoms Physical Examination Vital Signs: Vital Signs Temperature Pulse Rate 95 H 09/16/18 23:01 Respiratory Rate 18 09/16/18 23:01 Blood Pressure 146/57 L 09/16/18 23:01 O2 Sat by Pulse Oximetry (%) 99 09/16/18 23:01 Constitutional: Yes: No Distress, Calm Eyes: Yes: WNL, Conjunctiva Clear, EOM Intact, PERRL HENT: Yes: WNL, Atraumatic, Normocephalic Neck: Yes: WNL, Supple, Trachea Midline Cardiovascular: Yes: Pulse Irregular Respiratory: Yes: Diminished, On Nasal O2, Rales, Rhonchi Gastrointestinal: Yes: WNL, Normal Bowel Sounds, Soft ...Rectal Exam: Yes: Deferred Renal/: Yes: WNL Breast(s): Yes: WNL Musculoskeletal: Yes: WNL Extremities: Yes: WNL Edema: No Peripheral Pulses WNL: Yes Neurological: Yes: WNL, Alert, Oriented, Cran Nerves II-XII Intact ...Motor Strength: WNL Psychiatric: Yes: WNL, Alert, Oriented Labs: CBC, BMP 09/17/18 00:05 09/17/18 00:05 Laboratory Results - last 24 hr 09/17/18 09/17/18 09/17/18 00:05 00:05 00:05 WBC 12.5 H RBC 4.04 Hgb 12.5 Hct 36.7 MCV 90.8 MCH 30.8 MCHC 33.9 RDW 14.8 Plt Count 165 MPV 11.1 D Absolute Neuts (auto) 10.3 H Neutrophils % 82.5 D Lymphocytes % 5.1 L D Monocytes % 12.1 H Eosinophils % 0.0 D Basophils % 0.3 Nucleated RBC % 0 Sodium Potassium Chloride Carbon Dioxide Anion Gap BUN Creatinine Est GFR (CKD-EPI)AfAm Est GFR (CKD-EPI)NonAf Random Glucose Lactic Acid Calcium Total Bilirubin AST ALT Alkaline Phosphatase Creatine Kinase Creatine Kinase Index CK-MB (CK-2) Troponin I 0.18 H B-Natriuretic Peptide 22956.0 H Total Protein Albumin Stool Occult Blood Negative 09/17/18 09/17/18 09/17/18 00:05 00:05 02:12 WBC RBC Hgb Hct MCV MCH MCHC RDW Plt Count MPV Absolute Neuts (auto) Neutrophils % Lymphocytes % Monocytes % Eosinophils % Basophils % Nucleated RBC % Sodium 142 Potassium 3.4 L Chloride 110 H Carbon Dioxide 21 Anion Gap 11 BUN 47.2 H Creatinine 1.9 H Est GFR (CKD-EPI)AfAm 36.45 Est GFR (CKD-EPI)NonAf 31.45 Random Glucose 131 H Lactic Acid 1.8 Calcium 8.9 Total Bilirubin 5.3 H AST 42 H ALT 24 Alkaline Phosphatase 125 H Creatine Kinase 1616 H Cancelled Creatine Kinase Index 1.0 CK-MB (CK-2) 16.2 H Troponin I B-Natriuretic Peptide Total Protein 7.5 Albumin 3.4 Stool Occult Blood Intake & Output 09/14/18 09/15/18 09/16/18 09/17/18 23:59 23:59 23:59 23:59 Weight 78.925 kg Imaging - Results Chest X-ray: Image Reviewed EKG: Image Reviewed Problem List - Problems (1) Acute exacerbation of CHF (congestive heart failure) Code(s): I50.9 - HEART FAILURE, UNSPECIFIED (2) Atrial fibrillation Code(s): I48.91 - UNSPECIFIED ATRIAL FIBRILLATION (3) HTN (hypertension) Code(s): I10 - ESSENTIAL (PRIMARY) HYPERTENSION (4) Hyperlipidemia Code(s): E78.5 - HYPERLIPIDEMIA, UNSPECIFIED (5) Hypothyroid Code(s): E03.9 - HYPOTHYROIDISM, UNSPECIFIED (6) Pulmonary hypertension Code(s): I27.2 - OTHER SECONDARY PULMONARY HYPERTENSION * DO NOT USE * Assessment/Plan This is a 83 y/o man admitted to Telemetry for Acute on Chronic CHF Exacerbation for further evaluation of their emergent condition Plan: Admit Cardiac Monitoring Serial Enzymes, Troponin elevated likely demand ischemia, will trend EKG-reviewed Chest Xray image reviewed Appreciate Cardiology consult BNP 04857, improved from last admission Continue Lasix Continue home meds when verified Series INR- goal 2-3 Strict INOs Daily weight Fluid Restriction Low Na Diet DVT ppx- SCDs, Continue Coumadin Dispo: Requires Inpatient Care Visit type - Emergency Visit Emergency Visit: Yes ED Registration Date: 09/16/18 Care time: The patient presented to the Emergency Department on the above date and was hospitalized for further evaluation of their emergent condition. - New Patient This patient is new to me today: Yes Date on this admission: 09/17/18 - Critical Care Critical Care patient: No
[2018-09-17 06:22] LABS: EPI CELLS 0.1 /HPF (0-5/HPF); HYALINE CASTS 37 /lpf (0-8); URINE APPEARANCE CLEAR; URINE BACTERIA 659.9 /hpf (NEGATIVE); URINE BILIRUBIN NEGATIVE (NEGATIVE); URINE COLOR YELLOW; URINE GLUCOSE (UA) NEGATIVE (NEGATIVE); URINE KETONE NEGATIVE (NEGATIVE); URINE LEUK ESTERASE 3+ (NEGATIVE); URINE NITRITE POSITIVE (NEGATIVE); URINE PROTEIN 1+ (NEGATIVE); URINE RBC 1 /hpf (0-4); URINE UROBILINOGEN 0.2 mg/dL (0.2-1.0); URINE WBC 61 /hpf (0-5)
[2018-09-17] MEDS ORDERED: CEFTRIAXONE 1 GM in DEXTROSE 5%-WATER - 100 ML IVPB ONE (06:49)
[2018-09-17] MEDS ORDERED: CEFTRIAXONE 1 GM/50 ML BAG ONE (06:53)
[2018-09-17 10:16] LABS: PROTHROMBIN TIME (PATIENT) 59.2 SEC (9.7-13.0)
[2018-09-17 11:32] LABS: INR 4.94 (0.83-1.09)
--- NOTE | 2018-09-17 13:30 | EKG ---
Test Reason : Blood Pressure : / mmHG Vent. Rate : 094 BPM Atrial Rate : 078 BPM P-R Int : 000 ms QRS Dur : 144 ms QT Int : 420 ms P-R-T Axes : 000 239 020 degrees QTc Int : 525 ms Ventricular-paced rhythm WITH OCCASIONAL and consecutive PREMATURE VENTRICULAR COMPLEXES Biventricular pacemaker detected ABNORMAL ECG Confirmed by NEELAM STAUFFER MD ([id number]) on 09/17/2018 1:30:23 PM Referred By: Confirmed By:NEELAM STAUFFER MD
--- NOTE | 2018-09-17 15:29 | CON.CARD ---
Consult Consult Specialty:: cardiology Reason for Consultation:: Cardiomyoathy. - History of Present Illness History of Present Illness: 83 year old male with a PMH of NICM (EF:20% - 12/2015 MR/TR) s/p BiV ICD with further improvement of functional capacity, HTN, HLD, AFib on AC ( Coumadin). ECHOcardiogram (12/09/17): Moderately reduced LVSF. LVEF 40%. Mild CLVH. Severely dilated LAC. NSC since prior study. Echo - 12/2015: EF: 20%. LVD (6.1 - 4.5) with severe LV Dysfunction with moderate diastolic dysfunction. Mild LVH. Severe LAE (7.1). Mod to sev MR. Mod to sev TR. Severe pHTN. Normal RV size and function. He is admitted with generalized weakness and inability to ambulate. There is no significant increase in dyspnea, orthopnea or significant edema - History Source History Provided By: Patient, Medical Record Limitations to Obtaining History: No Limitations - Past Medical History Cardio/Vascular: Yes: AFIB, CHF, HTN, Hyperlipdemia, Murmur, Pulmonary Hypertension, Other (tricuspid insuficiency) Endocrine: Yes: Hypothyroidism - Past Surgical History Past Surgical History: Yes: Hernia Repair - Alcohol/Substance Use Hx Alcohol Use: No History of Substance Use: reports: None - Smoking History Smoking history: Former smoker Have you smoked in the past 12 months: No Aproximately how many cigarettes per day: 0 If you are a former smoker, when did you quit?: 1953 - Social History Usual Living Arrangement: Alone ADL: Independent Occupation: retired History of Recent Travel: No Home Medications - Allergies Allergies/Adverse Reactions: Allergies Allergy/AdvReac Type Severity Reaction Status Date / Time cefuroxime Allergy Intermediate rash on Verified 07/13/17 09:05 legs - Home Medications Home Medications: Ambulatory Orders Digoxin [Lanoxin -] 0.125 mg PO DAILY 05/24/15 Furosemide 40 mg PO DAILY 05/24/15 Levothyroxine [Synthroid -] 50 mcg PO DAILY 05/24/15 Losartan Potassium [Cozaar -] 25 mg PO DAILY 05/24/15 Simvastatin [Zocor -] 10 mg PO HS 05/24/15 Metoprolol Succinate [Toprol XL -] 50 mg PO BID tab.sr.24h 05/31/15 Tamsulosin HCl 0.4 mg PO DAILY 07/13/17 Warfarin Na [Coumadin -] 3 mg PO MOWEFR 07/13/17 Review of Systems - Review of Systems Constitutional: reports: Loss of Appetite, Weakness Eyes: reports: No Symptoms HENT: reports: No Symptoms Cardiovascular: reports: No Symptoms. denies: Chest Pain, Edema, Palpitations, Shortness of Breath Respiratory: reports: No Symptoms Gastrointestinal: reports: No Symptoms Breasts: reports: No Symptoms Reported Musculoskeletal: reports: No Symptoms Integumentary: reports: No Symptoms Neurological: reports: No Symptoms Endocrine: reports: No Symptoms Vital Signs: Vital Signs Temperature 98.3 F 09/17/18 07:15 Pulse Rate 80 09/17/18 07:15 Respiratory Rate 16 09/17/18 07:15 Blood Pressure 140/71 09/17/18 07:15 O2 Sat by Pulse Oximetry (%) 97 09/17/18 07:15 Constitutional: Yes: No Distress, Calm, Thin Eyes: Yes: Conjunctiva Clear, EOM Intact HENT: Yes: Atraumatic, Normocephalic Neck: Yes: Supple, Trachea Midline Respiratory: Yes: Regular, CTA Bilaterally Gastrointestinal: Yes: Normal Bowel Sounds Renal/: Yes: WNL Cardiovascular: Yes: WNL, Regular Rate and Rhythm JVD: No Carotid Bruit: No PMI: Non-Displaced Heart Sounds: Yes: S1, S2 Murmur: Yes: Systolic Murmur, Grade 4 Edema: No - Other Data Labs, Other Data: CBC, BMP 09/17/18 00:05 09/17/18 00:05 INR, PTT INR 4.94 (0.83-1.09) H* 09/17/18 09:30 Troponin, BNP 09/17/18 09/17/18 09/17/18 00:05 09:30 13:50 Troponin I 0.18 H 0.20 H 0.20 H B-Natriuretic Peptide 78598.0 H Troponin, BNP 09/17/18 09/17/18 09/17/18 00:05 09:30 13:50 Troponin I 0.18 H 0.20 H 0.20 H B-Natriuretic Peptide 97218.0 H AV paced NSVT Imaging - Results Chest X-ray: Report Reviewed Problem List - Problems (1) CHF exacerbation Code(s): I50.9 - HEART FAILURE, UNSPECIFIED Qualifiers: Heart failure type: unspecified Qualified Code(s): I50.9 - Heart failure, unspecified (2) Atrial fibrillation Code(s): I48.91 - UNSPECIFIED ATRIAL FIBRILLATION Assessment/Plan 83 yo M dilated non-ischemic cardiomyopathy with EF 20-40%, (ECHOcardiogram (12/09/17): Moderately reduced LVSF. LVEF 40%. Mild CLVH. Severely dilated LAC. NSC since prior study.) significant non-valvular MR and TR and pulm HTN with PAF. Admitted with weakness. His CXR and exam does not suggest volume overload. There is NABIL and mild TP elevation. CHF: Sp BiV AICD. Device is checked through [facility]. NICM with chronic CHF. He is intravascularly volume depleted. UA is positive. Hold Aldactone, Lasix and ARB at this time Can continue Metoprolol at home dose. Check digoxin Level Will reinitiate CHF medications when euvolemic. TP elevation: In the setting of DCM, deconditioning. Not an ACS pattern. Afib Paroxysmal Hold coumadin until INR <3. Goal INR 2-3. Given significant valvulopathy, would prefer using Coumadin as opposed to a NOAC. Possible infection UTI to be treated as per primary team.
[2018-09-18 09:14] LABS: INR 4.84 (0.83-1.09)
--- NOTE | 2018-09-18 11:51 | PN ---
Progress Note, Physician Chief Complaint: Acute on Chronic CHF Exacerbation Afib SOB History of Present Illness: Previous notes and events reviewed awake and alert NAD denies chest pain sts breathing is improving and denies SOB elevated INR - Current Medication List Current Medications: Active Medications Atorvastatin Calcium (Lipitor -) 10 mg PO HS EMY Levofloxacin (Levaquin 250 Mg Premixed Ivpb -) 250 mg in 50 mls @ 50 mls/hr IVPB DAILY EMY; Protocol Stop: 09/21/18 09:59 Last Admin: 09/18/18 09:54 Dose: 50 mls/hr Levothyroxine Sodium (Synthroid -) 50 mcg PO DAILY EMY Metoprolol Succinate (Toprol Xl -) 50 mg PO BID EMY Tamsulosin HCl (Flomax -) 0.4 mg PO DAILY [facility] - Objective Vital Signs: Vital Signs Temperature 97.9 F 09/18/18 09:53 Pulse Rate 85 09/18/18 09:53 Respiratory Rate 16 09/18/18 09:53 Blood Pressure 139/67 09/18/18 09:53 O2 Sat by Pulse Oximetry (%) 97 09/18/18 09:00 Constitutional: Yes: No Distress, Calm Eyes: Yes: Conjunctiva Clear HENT: Yes: Atraumatic Cardiovascular: Yes: Pulse Irregular Respiratory: Yes: Regular, Diminished, On Nasal O2 Gastrointestinal: Yes: Normal Bowel Sounds, Soft Musculoskeletal: Yes: Muscle Weakness Extremities: Yes: WNL Edema: No Neurological: Yes: Alert Psychiatric: Yes: Alert Labs: CBC, BMP 09/17/18 00:05 09/17/18 00:05 INR, PTT INR 4.84 (0.83-1.09) H* 09/18/18 06:00 - ....Imaging Cat Scan: Report Reviewed Problem List - Problems (1) Acute exacerbation of CHF (congestive heart failure) Assessment/Plan: -Cardiology on board -tele monitoring -1L fluid restriction -daily weights -lasix on hold due to elev BUN/Cr -BNP 38977 Code(s): I50.9 - HEART FAILURE, UNSPECIFIED (2) Acute renal failure Assessment/Plan: -BUN/Cr 47.2/1.9 -monitor renal function daily -renal consult placed Code(s): N17.9 - ACUTE KIDNEY FAILURE, UNSPECIFIED Qualifiers: Acute renal failure type: unspecified Qualified Code(s): N17.9 - Acute kidney failure, unspecified (3) Atrial fibrillation Assessment/Plan: -tele monitoring -Coumadin on hold due to elev INR -current INR 4.84--showing downtrend -will resume coumadin when within therapeutic range 2-3 -Metoprolol for rate control Code(s): I48.91 - UNSPECIFIED ATRIAL FIBRILLATION (4) Elevated INR Assessment/Plan: -Coumadin on hold, resume when in therapeutic range -INR 4.84 -monitor INR daily Code(s): R79.1 - ABNORMAL COAGULATION PROFILE (5) HTN (hypertension) Assessment/Plan: -monitor BP -low Na diet Code(s): I10 - ESSENTIAL (PRIMARY) HYPERTENSION (6) Hyperlipidemia Assessment/Plan: -Atorvastatin Code(s): E78.5 - HYPERLIPIDEMIA, UNSPECIFIED (7) Hypothyroid Assessment/Plan: -Levothyroxine Code(s): E03.9 - HYPOTHYROIDISM, UNSPECIFIED (8) Shortness of breath Assessment/Plan: -Pulm consult -O2 via NC -keep SpO2 >90% Code(s): R06.02 - SHORTNESS OF BREATH (9) UTI (urinary tract infection) Assessment/Plan: -ID on board -Azactam -afebrile -leukocytosis--WBC 12.5 -UC prelim positive, UA 3+ leukocytes Code(s): N39.0 - URINARY TRACT INFECTION, SITE NOT SPECIFIED Assessment/Plan see problem list
--- NOTE | 2018-09-18 15:17 | PN ---
Progress Note (short form) - Note Progress Note: ID consult dictated imp/reccd UTI generalized weakness NABIL CAD/CHF cefuroxime allergy? start azactam, f/u cultures blood cultures ordered Problem List - Problems (1) UTI (urinary tract infection) Code(s): N39.0 - URINARY TRACT INFECTION, SITE NOT SPECIFIED (2) Weakness Code(s): R53.1 - WEAKNESS (3) NABIL (acute kidney injury) Code(s): N17.9 - ACUTE KIDNEY FAILURE, UNSPECIFIED
--- NOTE | 2018-09-18 16:00 | CONS ---
DATE OF CONSULTATION: DATE OF DICTATION: 09/18/2018 CONSULTATION REQUESTED BY: Hannah Ho MD This is an 83-year-old man who was admitted on the . Patient is an extremely poor historian, and the history is from the chart. He was found at home by his grandson apparently on the unable to get up from the toilet. He was unable to stand or bear his own weight, and he was brought in by EMS. He does complain of generalized weakness which apparently he has had for the last 2 days. He denies any fevers to me, denies any chills or nausea or vomiting. PAST MEDICAL HISTORY: Notable for heart failure, hypertension, atrial fibrillation with a pacemaker, and BPH as well as hernia. He was noted to have a white count of 12.5 and a BUN and creatinine of 47 and 1.9 in the emergency room. He had a chest x-ray done and a CAT scan of his abdomen and pelvis. The CAT scan of the abdomen and pelvis showed a large right inguinal hernia containing fat and vessels without incarceration. There was no small-bowel obstruction. He had marked cardiomegaly. Evaluation of liver, spleen, pancreas , gallbladder and both adrenal glands and kidneys was unremarkable. This is a noncontrast study. He had as well a chest x-ray in the emergency room that showed no evidence of any infiltrate. He had a Recinos placed in the emergency room. It is unclear why, and a urinalysis was sent as well as a urine culture. I am asked to see him for these results. Per the H&P he reports that he had not taken his medications for 2 days prior to admission. PAST MEDICAL HISTORY: As previously stated, is notable for atrial fibrillation, heart failure, hypertension, hyperlipidemia, pulmonary hypertension, as well as hypothyroidism. He has a history of as well of nonischemic cardiomyopathy with an ejection fraction of 20%. He has a biventricular ICD that was placed in 2016. He has a history of atrial fibrillation and is on anticoagulation. PAST SURGICAL HISTORY: Notable for hernia repair. SOCIAL HISTORY: Reports his 10 years ago and he lives by himself. He denies any cigarette or substance use. MEDICATIONS: His medications at home include digoxin, furosemide, Synthroid, Cozaar, Zocor, metoprolol, tamsulosin, and Coumadin. ALLERGIES: He is allergic to CEFUROXIME, which gives him a rash on his legs. REVIEW OF SYSTEMS: He denies any fevers, chills, nausea, vomiting, or diarrhea. There is no history of any travel. PHYSICAL EXAMINATION: Vital Signs: He is afebrile. Temperature is 97.9, pulse of 81, blood pressure 136/64, respiratory rate is 18. HEENT: He is normocephalic. His eyes are anicteric. Neck: Supple. Lungs: Have diminished breath sounds at the bases but are otherwise clear. Heart: Regular rate and rhythm. He has a large defibrillator in his left chest wall, the site of which is without any erythema or edema or discomfort. Abdomen: Soft, nontender. He has a large inguinal hernia that is soft and nontender. Extremities: Without edema. LABORATORY: Labs are notable for white count of 12.5. Hemoglobin is 12.5, platelets are 165. INR is 4.8. His BUN and creatinine are 47 and 1.9, with a CK of 1616 on admission that is now 769. Urinalysis shows 3+ leukocyte esterase with 61 white cells. Stool occult blood is negative. Blood cultures are pending which were sent today, this afternoon. Yesterday a urine culture was sent and has nonlactose fermenting gram-negative bacilli. Her received levofloxacin which was started today. Yesterday he received ceftriaxone and Lasix. SUMMARY: This is an elderly man admitted with generalized weakness, possibly a urinary tract infection. He has history of atrial fibrillation and elevated CPK. His diuretics are being held as his creatinine is elevated. I would suggest at this time that we treat him for urinary tract infection given the fact that we do not have a good explanation of his generalized weakness. Of note, 1 year ago, in 2018, his BUN and creatinine were 23 and 1, and now they are 47 and 1.9. Would start him on Azactam while we investigate the nature of his allergy. Further recommendations to follow. He is being evaluated by Cardiology as well. DANIELLE SHAHID M.D. [id number] MTDD
[2018-09-18] MEDS: AZTREONAM 1 GM VIAL (RESTRICTED TO ID) IVPB SCH ×2 (16:28→21:56)
--- NOTE | 2018-09-18 17:29 | PN ---
Progress Note, Physician History of Present Illness: pt seen and examined today in nad. states he is feeling better. no new complaints. - Current Medication List Current Medications: Active Medications Atorvastatin Calcium (Lipitor -) 10 mg PO HS EMY Aztreonam (Azactam (Restricted To Id) -) 1 gm IVPB BID [facility]; Protocol Last Admin: 09/18/18 16:28 Dose: 1 gm Levothyroxine Sodium (Synthroid -) 50 mcg PO DAILY [facility] Metoprolol Succinate (Toprol Xl -) 50 mg PO BID EMY Tamsulosin HCl (Flomax -) 0.4 mg PO DAILY [facility] - Objective Vital Signs: Vital Signs Temperature 97.9 F 09/18/18 15:11 Pulse Rate 81 09/18/18 15:11 Respiratory Rate 18 09/18/18 15:11 Blood Pressure 136/64 09/18/18 15:11 O2 Sat by Pulse Oximetry (%) 97 09/18/18 09:00 Constitutional: Yes: No Distress, Calm Eyes: Yes: Conjunctiva Clear, EOM Intact, PERRL HENT: Yes: Atraumatic, Normocephalic Neck: Yes: Supple, Trachea Midline Cardiovascular: Yes: Regular Rate and Rhythm, S1, S2. No: Bradycardia, Tachycardia, Pulse Irregular, Bruit, JVD, Gallop, Murmur, Rub, S3, S4, Varicosities Respiratory: Yes: Regular, Diminished. No: Rales, Rhonchi, SOB, Wheezes Gastrointestinal: Yes: Normal Bowel Sounds, Soft. No: Distention, Tenderness Edema: No Neurological: Yes: Alert, Oriented Psychiatric: Yes: Alert, Oriented Labs: CBC, BMP 09/17/18 00:05 09/17/18 00:05 INR, PTT INR 4.84 (0.83-1.09) H* 09/18/18 06:00 - ....Imaging Chest X-ray: Report Reviewed, Image Reviewed EKG: Report Reviewed, Image Reviewed Other: Report Reviewed, Image Reviewed Assessment/Plan 83 yo M dilated non-ischemic cardiomyopathy with EF 20-40%, (ECHOcardiogram (12/09/17): Moderately reduced LVSF. LVEF 40%. Mild CLVH. Severely dilated LAC. NSC since prior study.) significant non-valvular MR and TR and pulm HTN with PAF. Admitted with weakness. His CXR and exam does not suggest volume overload. There is NABIL and mild TP elevation. CHF: Sp BiV AICD. Device is checked through [facility]. NICM with chronic CHF. He is intravascularly volume depleted. UA is positive. Holding Aldactone, Lasix and ARB at this time Can continue Metoprolol at home dose. Digoxin level 1.14 Hold digoxin for now until creatinine improves Will reinitiate CHF medications as needed TP elevation: In the setting of DCM, deconditioning. Not an ACS pattern. Afib Paroxysmal Hold coumadin until INR <3. Goal INR 2-3. Given significant valvulopathy, would prefer using Coumadin as opposed to a NOAC. Possible infection UTI to be treated as per primary team.
[2018-09-18] MEDS ORDERED: POTASSIUM CHLORIDE ORAL LIQUID 20 MEQ/15 ML PO ONE (17:54)
[2018-09-18 18:42] LABS: ALBUMIN 2.6 g/dl (3.4-5.0); BILIRUBIN,TOTAL 2.2 mg/dL (0.2-1); BLOOD UREA NITROGEN 36.6 mg/dL (7-18); CREATININE 1.4 mg/dL (0.55-1.3); POTASSIUM 3.5 mmol/L (3.5-5.1); TOT PROT 6.3 g/dl (6.4-8.2)
[2018-09-18] MEDS: ATORVASTATIN CA 10 MG TABLET (FP) PO SCH (21:57)
[2018-09-19 06:55] LABS: HEMATOCRIT 33.1 % (35.4-49); HEMOGLOBIN 11.5 GM/dL (11.7-16.9); MCH 31.7 pg (25.7-33.7); MCHC 34.6 g/dl (32.0-35.9); MEAN CELL VOLUME 91.6 fl (80-96); MEAN PLT VOLUME 10.6 fl (7.5-11.1); PLATELET COUNT 160 K/MM3 (134-434); RBC 3.61 M/mm3 (4.00-5.60); RDW 14.7 % (11.9-15.9)
[2018-09-19 07:03] LABS: INR 2.74 (0.83-1.09); PROTHROMBIN TIME (PATIENT) 32.7 SEC (9.7-13.0)
--- NOTE | 2018-09-19 09:21 | PN ---
Progress Note, Physician Chief Complaint: Acute on Chronic CHF Exacerbation Afib SOB History of Present Illness: Previous notes and events reviewed awake and alert NAD denies chest pain sts breathing is improving and denies SOB INR 2.74 - Current Medication List Current Medications: Active Medications Atorvastatin Calcium (Lipitor -) 10 mg PO HS [facility] Last Admin: 09/18/18 21:57 Dose: 10 mg Aztreonam (Azactam (Restricted To Id) -) 1 gm IVPB BID [facility]; Protocol Last Admin: 09/18/18 21:56 Dose: 1 gm Levothyroxine Sodium (Synthroid -) 50 mcg PO DAILY [facility] Metoprolol Succinate (Toprol Xl -) 50 mg PO BID [facility] Last Admin: 09/18/18 21:57 Dose: 50 mg Tamsulosin HCl (Flomax -) 0.4 mg PO DAILY [facility] - Objective Vital Signs: Vital Signs Temperature 97.8 F 09/19/18 06:00 Pulse Rate 81 09/19/18 06:00 Respiratory Rate 20 09/19/18 06:00 Blood Pressure 147/80 09/19/18 06:00 O2 Sat by Pulse Oximetry (%) 98 09/18/18 21:00 Constitutional: Yes: No Distress, Calm Eyes: Yes: Conjunctiva Clear HENT: Yes: Atraumatic Cardiovascular: Yes: Pulse Irregular Respiratory: Yes: Regular, CTA Bilaterally Gastrointestinal: Yes: Normal Bowel Sounds, Soft Genitourinary: Yes: Incontinence Musculoskeletal: Yes: Muscle Weakness Extremities: Yes: WNL Edema: No Neurological: Yes: Alert Psychiatric: Yes: Alert Labs: CBC, BMP 09/19/18 06:08 09/18/18 17:40 INR, PTT INR 2.74 (0.83-1.09) H 09/19/18 06:08 Microbiology 09/17/18 06:00 Urine - Urine Clean Catch Urine Culture - Final Proteus Mirabilis Problem List - Problems (1) Acute exacerbation of CHF (congestive heart failure) Assessment/Plan: -Cardiology on board -tele monitoring -1L fluid restriction -daily weights -lasix on hold due to elev BUN/Cr -BNP 44322 Code(s): I50.9 - HEART FAILURE, UNSPECIFIED (2) Acute renal failure Assessment/Plan: -BUN/Cr 36.6/1.4 -monitor renal function daily -renal consult placed Code(s): N17.9 - ACUTE KIDNEY FAILURE, UNSPECIFIED Qualifiers: Acute renal failure type: unspecified Qualified Code(s): N17.9 - Acute kidney failure, unspecified (3) Atrial fibrillation Assessment/Plan: -tele monitoring -Coumadin restarted -current INR 2.74 -monitor for therapeutic INR range 2-3 -daily INR -Metoprolol for rate control Code(s): I48.91 - UNSPECIFIED ATRIAL FIBRILLATION (4) Elevated INR Assessment/Plan: -Coumadin resumed -INR 2.74 -monitor INR daily Code(s): R79.1 - ABNORMAL COAGULATION PROFILE (5) HTN (hypertension) Assessment/Plan: -monitor BP -low Na diet Code(s): I10 - ESSENTIAL (PRIMARY) HYPERTENSION (6) Hyperlipidemia Assessment/Plan: -Atorvastatin Code(s): E78.5 - HYPERLIPIDEMIA, UNSPECIFIED (7) Hypothyroid Assessment/Plan: -Levothyroxine Code(s): E03.9 - HYPOTHYROIDISM, UNSPECIFIED (8) Shortness of breath Assessment/Plan: -Pulm consult -O2 via NC -keep SpO2 >90% Code(s): R06.02 - SHORTNESS OF BREATH (9) UTI (urinary tract infection) Assessment/Plan: -ID on board -Azactam -afebrile -no leukocytosis -UC positive for proteus, UA 3+ leukocytes Code(s): N39.0 - URINARY TRACT INFECTION, SITE NOT SPECIFIED Assessment/Plan see problem list
[2018-09-19] MEDS: LEVOTHYROXINE NA 50 MCG TABLET (FP) PO SCH (09:32)
[2018-09-19] MEDS: TAMSULOSIN HCL 0.4 MG CAP PO SCH (09:32)
--- NOTE | 2018-09-19 10:18 | CON.PULM ---
Consult Consult Specialty:: PULMONARY Referred by:: DEVI Reason for Consultation:: SOB - History of Present Illness Chief Complaint: SOB History of Present Illness: The patient is an 83 year old male with a past medical history of CHF, HTN, hypothyroidism, afib (s/p pacemaker), and BPH admitted for evaluation of general weakness. The patient reports that he has had 2 days of weakness that he mostly feels in his legs. Grandson reports that he had to help the patient get up from the toilet today and noticed some blood around the patients anus. Family also notes that the patient has had a tremor. - History Source History Provided By: Patient, Medical Record Limitations to Obtaining History: Clinical Condition - Past Medical History [employer] SU[employer]VISOR: No: Alzheimer's Cardio/Vascular: Yes: AFIB, CHF, HTN, Hyperlipdemia, Murmur, Pulmonary Hypertension, Other (tricuspid insuficiency) Endocrine: Yes: Hypothyroidism - Past Surgical History Past Surgical History: Yes: Hernia Repair - Alcohol/Substance Use Hx Alcohol Use: No History of Substance Use: reports: None - Smoking History Smoking history: Former smoker Have you smoked in the past 12 months: No Aproximately how many cigarettes per day: 0 If you are a former smoker, when did you quit?: 1953 - Social History Usual Living Arrangement: Alone ADL: Independent Occupation: retired Place of : [facility] History of Recent Travel: No Home Medications - Allergies Allergies/Adverse Reactions: Allergies Allergy/AdvReac Type Severity Reaction Status Date / Time cefuroxime Allergy Intermediate rash on Verified 07/13/17 09:05 legs - Home Medications Home Medications: Ambulatory Orders Digoxin [Lanoxin -] 0.125 mg PO DAILY 05/24/15 Furosemide 40 mg PO DAILY 05/24/15 Levothyroxine [Synthroid -] 50 mcg PO DAILY 05/24/15 Losartan Potassium [Cozaar -] 25 mg PO DAILY 05/24/15 Simvastatin [Zocor -] 10 mg PO HS 05/24/15 Metoprolol Succinate [Toprol XL -] 50 mg PO BID tab.sr.24h 05/31/15 Tamsulosin HCl 0.4 mg PO DAILY 07/13/17 Warfarin Na [Coumadin -] 3 mg PO MOWEFR 07/13/17 Family Disease History - Family Disease History Family History: Unremarkable Review of Systems - Review of Systems Constitutional: denies: Fever Eyes: denies: Blurred Vision HENT: denies: Difficult Swallowing Neck: denies: Decreased ROM Cardiovascular: reports: Shortness of Breath. denies: Chest Pain Respiratory: reports: Exercise Intolerance, SOB, SOB on Exertion. denies: Hemoptysis, Wheezing Gastrointestinal: reports: Rectal Bleeding. denies: Abdominal Pain Genitourinary: denies: Burning Breasts: reports: No Symptoms Reported Musculoskeletal: reports: Muscle Weakness Integumentary: reports: No Symptoms Neurological: reports: No Symptoms Endocrine: reports: No Symptoms Physical Exam Vital Sings: Vital Signs Temperature 97.8 F 09/19/18 06:00 Pulse Rate 81 09/19/18 06:00 Respiratory Rate 20 09/19/18 06:00 Blood Pressure 147/80 09/19/18 06:00 O2 Sat by Pulse Oximetry (%) 98 09/18/18 21:00 Constitutional: Yes: Calm Eyes: Yes: EOM Intact HENT: Yes: Normocephalic Neck: Yes: Trachea Midline Cardiovascular: Yes: S1, S2, Other (paced rhythm with ectopics) Respiratory: Yes: Diminished Gastrointestinal: Yes: Normal Bowel Sounds, Soft Edema: LLE: Trace, RLE: Trace Neurological: Yes: Alert Psychiatric: Yes: Alert Labs: CBC, BMP 09/19/18 06:08 09/18/18 17:40 REST REVIEWED Imaging - Results Chest X-ray: Report Reviewed, Image Reviewed Cat Scan: Report Reviewed EKG: Report Reviewed, Image Reviewed Assessment/Plan NON-ISCHEMIC CARDIOMYOPATHY REDUCED EF/PAF/CHF/AICD/INCREASED TROPS ADMITTED W INCREASED INR/WEAKNESS/?RECTAL BLEEDING NABIL/UTI PROTEUS (UNDER 100K COLONY COUNT) AGREE WITH EMPIRIC ABS PER ID INR NOW 2.6 CONSIDER RESTARTING COUMADIN BETA-HAL/CARDIAC MEDS PER FURNITURE [employer]SEMBL[employer] SUPERVISOR WILL FOLLOW Anson LEVINE MD
[2018-09-19] MEDS: AZTREONAM 1 GM VIAL (RESTRICTED TO ID) IVPB SCH ×2 (11:00→22:07)
[2018-09-19 14:37] VITALS: BMI 24.7
--- NOTE | 2018-09-19 14:37 | CON.NEP ---
Consult Consult Specialty:: Nephrology Referred by:: dr ewston Reason for Consultation:: acute azotemia - History of Present Illness Chief Complaint: gen weakness History of Present Illness: 83 y/o man admitted to Telemetry for Acute on Chronic CHF He was found at home by grandson today was unable to get up from the toilet and unable to stand up or stay up gen weakness and bear his own weigh he has UTI and is being treated referresd for azotemia labs are better today uncler if he had prior renal w/u in the past - History Source History Provided By: Patient, Medical Record Limitations to Obtaining History: Dementia - Past Medical History [employer]ATED [employer]UCK [employer]IVER: No: Alzheimer's Cardio/Vascular: Yes: AFIB, CHF, HTN, Hyperlipdemia, Murmur, Pulmonary Hypertension, Other (tricuspid insuficiency) Endocrine: Yes: Hypothyroidism - Past Surgical History Past Surgical History: Yes: Hernia Repair - Alcohol/Substance Use Hx Alcohol Use: No History of Substance Use: reports: None - Smoking History Smoking history: Former smoker Have you smoked in the past 12 months: No Aproximately how many cigarettes per day: 0 If you are a former smoker, when did you quit?: 1953 - Social History Usual Living Arrangement: Alone ADL: Independent Occupation: retired History of Recent Travel: No Home Medications - Allergies Allergies/Adverse Reactions: Allergies Allergy/AdvReac Type Severity Reaction Status Date / Time cefuroxime Allergy Intermediate rash on Verified 07/13/17 09:05 legs - Home Medications Home Medications: Ambulatory Orders Digoxin [Lanoxin -] 0.125 mg PO DAILY 05/24/15 Furosemide 40 mg PO DAILY 05/24/15 Levothyroxine [Synthroid -] 50 mcg PO DAILY 05/24/15 Losartan Potassium [Cozaar -] 25 mg PO DAILY 05/24/15 Simvastatin [Zocor -] 10 mg PO HS 05/24/15 Metoprolol Succinate [Toprol XL -] 50 mg PO BID tab.sr.24h 05/31/15 Tamsulosin HCl 0.4 mg PO DAILY 07/13/17 Warfarin Na [Coumadin -] 3 mg PO MOWEFR 07/13/17 Nephrology Consult - Height Height: 5 ft 9 in - Weight Weight: 167 lb 3.2 oz - BMI Body Mass Index (BMI): 24.7 - Lab Results CBC,BMP: CBC, BMP 09/19/18 06:08 09/18/18 17:40 Anion Gap: Anion Gap Anion Gap 10 MMOL/L (8-16) 09/18/18 17:40 - Physical Examination Vital Signs: Vital Signs Temperature 98.2 F 09/19/18 10:00 Pulse Rate 82 09/19/18 10:00 Respiratory Rate 20 09/19/18 10:00 Blood Pressure 136/88 09/19/18 10:00 O2 Sat by Pulse Oximetry (%) 98 09/19/18 10:00 Constitutional: Yes: Ashen Eyes: Yes: WNL, Conjunctiva Clear, EOM Intact HENT: Yes: WNL, Atraumatic, Normocephalic Neck: Yes: WNL, Supple, Trachea Midline Cardiovascular: Yes: WNL, Regular Rate and Rhythm Respiratory: Yes: WNL, Regular, CTA Bilaterally Gastrointestinal: Yes: WNL, Normal Bowel Sounds Musculoskeletal: Yes: WNL Extremities: Yes: WNL Integumentary: Yes: WNL Assessment/Plan merlyn on 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 Plan- continue to monitor labs while better hydrated and with antibiotic treatment Sonoof kidneys and bladder
[2018-09-19] MEDS ORDERED: PT OWN MED DRAWER 7, Y5N ONE (15:37)
--- NOTE | 2018-09-19 16:40 | PN ---
Progress Note, Physician History of Present Illness: seen and examined today in nad. feeling better. - Current Medication List Current Medications: Active Medications Atorvastatin Calcium (Lipitor -) 10 mg PO HS [facility] Last Admin: 09/18/18 21:57 Dose: 10 mg Aztreonam (Azactam (Restricted To Id) -) 1 gm IVPB BID [facility]; Protocol Last Admin: 09/19/18 11:00 Dose: 1 gm Levothyroxine Sodium (Synthroid -) 50 mcg PO DAILY [facility] Last Admin: 09/19/18 09:32 Dose: 50 mcg Metoprolol Succinate (Toprol Xl -) 50 mg PO BID [facility] Last Admin: 09/19/18 09:32 Dose: 50 mg Tamsulosin HCl (Flomax -) 0.4 mg PO DAILY [facility] Last Admin: 09/19/18 09:32 Dose: 0.4 mg Warfarin Sodium (Coumadin -) 3 mg PO MoWeFr@1800 [facility] - Objective Vital Signs: Vital Signs Temperature 97.6 F 09/19/18 14:00 Pulse Rate 78 09/19/18 14:00 Respiratory Rate 18 09/19/18 14:00 Blood Pressure 150/84 09/19/18 14:00 O2 Sat by Pulse Oximetry (%) 98 09/19/18 10:00 Constitutional: Yes: No Distress, Calm Eyes: Yes: Conjunctiva Clear, EOM Intact, PERRL HENT: Yes: Atraumatic, Normocephalic Neck: Yes: Supple, Trachea Midline Cardiovascular: Yes: Regular Rate and Rhythm, S1, S2. No: Bradycardia, Tachycardia, Pulse Irregular, Bruit, JVD, Gallop, Murmur, Rub, S3, S4, Varicosities Respiratory: Yes: Regular. No: Rales, Rhonchi, SOB, Wheezes Gastrointestinal: Yes: Normal Bowel Sounds, Soft. No: Distention, Tenderness Breast(s): Yes: WNL Musculoskeletal: Yes: WNL Extremities: Yes: WNL Edema: No Peripheral Pulses WNL: Yes Neurological: Yes: Alert, Oriented Psychiatric: Yes: Alert, Oriented Labs: CBC, BMP 09/19/18 06:08 09/18/18 17:40 INR, PTT INR 2.74 (0.83-1.09) H 09/19/18 06:08 - ....Imaging Chest X-ray: Report Reviewed, Image Reviewed EKG: Report Reviewed, Image Reviewed Other: Report Reviewed, Image Reviewed (tele-Vpaced, pvcs, short runs NSVT) Assessment/Plan 83 yo M dilated non-ischemic cardiomyopathy with EF 20-40%, (ECHOcardiogram (12/09/17): Moderately reduced LVSF. LVEF 40%. Mild CLVH. Severely dilated LAC. NSC since prior study.) significant non-valvular MR and TR and pulm HTN with PAF. Admitted with weakness. His CXR and exam does not suggest volume overload. There is NABIL and mild TP elevation. CHF: Sp BiV AICD. Device is checked through [facility]. NICM with chronic CHF. He is intravascularly volume depleted. UA is positive. Holding Aldactone, Lasix and ARB at this time cont metoprolol Digoxin level 1.14 Hold digoxin for now until creatinine improves Will reinitiate CHF medications as needed NSVT-short runs on tele vs afib with VPacing -replete electrolytes K-4 and check Mg and replete to 2 -increase Toprol XL to 75mg bid TP elevation: In the setting of DCM, deconditioning. Not an ACS pattern. Afib Paroxysmal Hold coumadin until INR <3. Goal INR 2-3. Given significant valvulopathy, would prefer using Coumadin as opposed to a NOAC. Possible infection UTI to be treated as per primary team.
[2018-09-19] MEDS: ATORVASTATIN CA 10 MG TABLET (FP) PO SCH (22:08)
[2018-09-20 07:59] LABS: HEMATOCRIT 38.5 % (35.4-49); HEMOGLOBIN 13.3 GM/dL (11.7-16.9); MCH 31.6 pg (25.7-33.7); MCHC 34.5 g/dl (32.0-35.9); MEAN CELL VOLUME 91.7 fl (80-96); MEAN PLT VOLUME 10.3 fl (7.5-11.1); PLATELET COUNT 169 K/MM3 (134-434); RBC 4.19 M/mm3 (4.00-5.60); RDW 14.4 % (11.9-15.9)
[2018-09-20 08:14] LABS: INR 1.85 (0.83-1.09)
[2018-09-20 08:31] LABS: ALBUMIN 2.8 g/dl (3.4-5.0); BILIRUBIN,TOTAL 2.2 mg/dL (0.2-1); BLOOD UREA NITROGEN 32.4 mg/dL (7-18); CALCIUM 9.1 mg/dL (8.5-10.1); CREATININE 1.1 mg/dL (0.55-1.3); POTASSIUM 4.2 mmol/L (3.5-5.1); TOT PROT 7.1 g/dl (6.4-8.2)
--- NOTE | 2018-09-20 09:11 | PN ---
Progress Note, Physician - Current Medication List Current Medications: Active Medications Atorvastatin Calcium (Lipitor -) 10 mg PO [facility] Last Admin: 09/19/18 22:08 Dose: 10 mg Aztreonam (Azactam (Restricted To Id) -) 1 gm IVPB BID [facility]; Protocol Last Admin: 09/19/18 22:07 Dose: 1 gm Levothyroxine Sodium (Synthroid -) 50 mcg PO DAILY [facility] Last Admin: 09/19/18 09:32 Dose: 50 mcg Metoprolol Succinate (Toprol Xl -) 75 mg PO BID [facility] Last Admin: 09/19/18 22:08 Dose: 75 mg Tamsulosin HCl (Flomax -) 0.4 mg PO DAILY [facility] Last Admin: 09/19/18 09:32 Dose: 0.4 mg Warfarin Sodium (Coumadin -) 3 mg PO MoWeFr@1800 [facility] - Objective Vital Signs: Vital Signs Temperature 97.4 F L 09/20/18 08:59 Pulse Rate 80 09/20/18 08:59 Respiratory Rate 18 09/20/18 09:00 Blood Pressure 149/79 09/20/18 08:59 O2 Sat by Pulse Oximetry (%) 99 09/20/18 09:00 Cardiovascular: Yes: Regular Rate and Rhythm Respiratory: Yes: Regular, CTA Bilaterally Gastrointestinal: Yes: Normal Bowel Sounds, Soft Labs: CBC, BMP 09/20/18 07:11 09/20/18 07:11 INR, PTT INR 1.85 (0.83-1.09) H 09/20/18 07:11 Assessment/Plan Problems (1) Acute exacerbation of CHF (congestive heart failure) Assessment/Plan: -Cardiology on board -tele monitoring -1L fluid restriction -daily weights -lasix on hold due to elev BUN/Cr -BNP 72976 Code(s): I50.9 - HEART FAILURE, UNSPECIFIED (2) Acute renal failure Assessment/Plan: -BUN/Cr 36.6/1.4 -monitor renal function daily -renal consult placed Code(s): N17.9 - ACUTE KIDNEY FAILURE, UNSPECIFIED Qualifiers: Acute renal failure type: unspecified Qualified Code(s): N17.9 - Acute kidney failure, unspecified (3) Atrial fibrillation Assessment/Plan: -tele monitoring -Coumadin restarted -current INR 2.74 -monitor for therapeutic INR range 2-3 -daily INR -Metoprolol for rate control Code(s): I48.91 - UNSPECIFIED ATRIAL FIBRILLATION (4) Elevated INR Assessment/Plan: -Coumadin resumed -INR 2.74 -monitor INR daily Code(s): R79.1 - ABNORMAL COAGULATION PROFILE (5) HTN (hypertension) Assessment/Plan: -monitor BP -low Na diet Code(s): I10 - ESSENTIAL (PRIMARY) HYPERTENSION (6) Hyperlipidemia Assessment/Plan: -Atorvastatin Code(s): E78.5 - HYPERLIPIDEMIA, UNSPECIFIED (7) Hypothyroid Assessment/Plan: -Levothyroxine Code(s): E03.9 - HYPOTHYROIDISM, UNSPECIFIED (8) Shortness of breath Assessment/Plan: -Pulm consult -O2 via NC -keep SpO2 >90% Code(s): R06.02 - SHORTNESS OF BREATH (9) UTI (urinary tract infection) Assessment/Plan: -ID on board -Azactam -afebrile -no leukocytosis -UC positive for proteus, UA 3+ leukocytes Code(s): N39.0 - URINARY TRACT INFECTION, SITE NOT SPECIFIED
--- NOTE | 2018-09-20 10:42 | PN ---
Progress Note, Physician History of Present Illness: PULMONARY AWAKE,NO DISTRESS,-CP,-SOB - Current Medication List Current Medications: Active Medications Atorvastatin Calcium (Lipitor -) 10 mg PO HS [facility] Last Admin: 09/19/18 22:08 Dose: 10 mg Aztreonam (Azactam (Restricted To Id) -) 1 gm IVPB BID [facility]; Protocol Last Admin: 09/19/18 22:07 Dose: 1 gm Levothyroxine Sodium (Synthroid -) 50 mcg PO DAILY [facility] Last Admin: 09/19/18 09:32 Dose: 50 mcg Metoprolol Succinate (Toprol Xl -) 75 mg PO BID [facility] Last Admin: 09/19/18 22:08 Dose: 75 mg Tamsulosin HCl (Flomax -) 0.4 mg PO DAILY [facility] Last Admin: 09/19/18 09:32 Dose: 0.4 mg Warfarin Sodium (Coumadin -) 3 mg PO MoWeFr@1800 [facility] - Objective Vital Signs: Vital Signs Temperature 97.4 F L 09/20/18 08:59 Pulse Rate 80 09/20/18 08:59 Respiratory Rate 18 09/20/18 09:00 Blood Pressure 149/79 09/20/18 08:59 O2 Sat by Pulse Oximetry (%) 99 09/20/18 09:00 Constitutional: Yes: Well Nourished, Calm Eyes: Yes: WNL HENT: Yes: WNL Neck: Yes: WNL Cardiovascular: Yes: Pulse Irregular, S1, S2 Respiratory: Yes: Diminished Gastrointestinal: Yes: Normal Bowel Sounds, Soft Extremities: Yes: WNL Edema: Yes Labs: CBC, BMP 09/20/18 07:11 09/20/18 07:11 INR, PTT INR 1.85 (0.83-1.09) H 09/20/18 07:11 Problem List - Problems (1) NABIL (acute kidney injury) Code(s): N17.9 - ACUTE KIDNEY FAILURE, UNSPECIFIED (2) CHF exacerbation Code(s): I50.9 - HEART FAILURE, UNSPECIFIED Qualifiers: Heart failure type: unspecified Qualified Code(s): I50.9 - Heart failure, unspecified (3) UTI (urinary tract infection) Code(s): N39.0 - URINARY TRACT INFECTION, SITE NOT SPECIFIED (4) Acute exacerbation of CHF (congestive heart failure) Code(s): I50.9 - HEART FAILURE, UNSPECIFIED (5) Acute renal failure Code(s): N17.9 - ACUTE KIDNEY FAILURE, UNSPECIFIED Qualifiers: Acute renal failure type: unspecified Qualified Code(s): N17.9 - Acute kidney failure, unspecified (6) Atrial fibrillation Code(s): I48.91 - UNSPECIFIED ATRIAL FIBRILLATION (7) Congestive heart failure Code(s): I50.9 - HEART FAILURE, UNSPECIFIED (8) Elevated INR Code(s): R79.1 - ABNORMAL COAGULATION PROFILE (9) HTN (hypertension) Code(s): I10 - ESSENTIAL (PRIMARY) HYPERTENSION (10) Hyperlipidemia Code(s): E78.5 - HYPERLIPIDEMIA, UNSPECIFIED (11) Hypothyroid Code(s): E03.9 - HYPOTHYROIDISM, UNSPECIFIED (12) Pulmonary hypertension Code(s): I27.2 - OTHER SECONDARY PULMONARY HYPERTENSION * DO NOT USE * (13) Shortness of breath Code(s): R06.02 - SHORTNESS OF BREATH Assessment/Plan Assessment/Plan NON-ISCHEMIC CARDIOMYOPATHY REDUCED EF PAF CHF SP AICD INCREASED TROPS INCREASED INR/WEAKNESS/?RECTAL BLEEDING NABIL EMPIRIC ABS PER ID COUMADIN BETA-HAL CARDIAC MEDS PER [employer]BON DIOXIDE OPERATOR DR SANFORD
[2018-09-20] MEDS: LEVOTHYROXINE NA 50 MCG TABLET (FP) PO SCH (10:47)
[2018-09-20] MEDS: TAMSULOSIN HCL 0.4 MG CAP PO SCH (10:48)
[2018-09-20] MEDS: AZTREONAM 1 GM VIAL (RESTRICTED TO ID) IVPB SCH ×2 (10:48→22:03)
--- NOTE | 2018-09-20 13:45 | PN ---
Progress Note, Physician Chief Complaint: No complaints Feels better Tele: paced with occasional pvc's and brief nsvt History of Present Illness: 83 yo M dilated non-ischemic cardiomyopathy with EF 20-40%, (ECHOcardiogram (12/09/17): Moderately reduced LVSF. LVEF 40%. Mild CLVH. Severely dilated LAC. NSC since prior study.) significant non-valvular MR and TR and pulm HTN with PAF. Admitted with weakness. His CXR and exam does not suggest volume overload. There is NABIL and mild TP elevation. - Current Medication List Current Medications: Active Medications Atorvastatin Calcium (Lipitor -) 10 mg PO HS [facility] Last Admin: 09/19/18 22:08 Dose: 10 mg Aztreonam (Azactam (Restricted To Id) -) 1 gm IVPB BID [facility]; Protocol Last Admin: 09/20/18 10:48 Dose: 1 gm Levothyroxine Sodium (Synthroid -) 50 mcg PO DAILY [facility] Last Admin: 09/20/18 10:47 Dose: 50 mcg Metoprolol Succinate (Toprol Xl -) 75 mg PO BID [facility] Last Admin: 09/20/18 10:48 Dose: 75 mg Tamsulosin HCl (Flomax -) 0.4 mg PO DAILY [facility] Last Admin: 09/20/18 10:48 Dose: 0.4 mg Warfarin Sodium (Coumadin -) 3 mg PO MoWeFr@1800 [facility] - Objective Vital Signs: Vital Signs Temperature 97.4 F L 09/20/18 08:59 Pulse Rate 80 09/20/18 08:59 Respiratory Rate 18 09/20/18 09:00 Blood Pressure 149/79 09/20/18 08:59 O2 Sat by Pulse Oximetry (%) 99 09/20/18 09:00 Constitutional: Yes: No Distress Neck: Yes: Supple Cardiovascular: Yes: Regular Rate and Rhythm, Murmur (+3/6 HSM apex), S1, S2. No: JVD Respiratory: Yes: CTA Bilaterally Gastrointestinal: Yes: Soft Edema: No Labs: CBC, BMP 09/20/18 07:11 09/20/18 07:11 INR, PTT INR 1.85 (0.83-1.09) H 09/20/18 07:11 Assessment/Plan 83 yo M dilated non-ischemic cardiomyopathy with EF 20-40%, (ECHOcardiogram (10/ 3/18): Moderately reduced LVSF. LVEF 40%. Mild CLVH. Severely dilated LAC. NSC since prior study.) significant non-valvular MR and TR and pulm HTN with PAF. Admitted with weakness. His CXR and exam does not suggest volume overload. There is NABIL and mild TP elevation. 1) Chronic systolic CHF: Sp BiV AICD. NICM with chronic CHF. He is intravascularly volume depleted upon admission. Holding Aldactone, Lasix and ARB at this time cont metoprolol Would start to slowly reinitiate CHF medications as needed and would start with Arb. lasix and spironolactone likely to consider with outpatient follow up. Says he follows with [facility] at Dr. Ho's office NSVT-short runs on tele vs afib with VPacing -increased Toprol XL to 75mg bid Ensure lytes repleted if needed. TP elevation: In the setting of DCM, deconditioning. Not an ACS pattern. Afib Paroxysmal Coumadin restarted. Goal INR 2-3. Possible infection UTI to be treated as per primary team. Will sign off at this time.
--- NOTE | 2018-09-20 14:49 | PN ---
Progress Note (short form) - Note Progress Note: still has a estrada no fevers Vital Signs Period Temp Pulse Resp BP Sys/Edwards Pulse Ox Last 24 Hr 97.4 F-98.9 F 80-85 18-18 139-149/68-87 97-99 cor-rrr lungs decreased bs at bases abd soft,nt ext venous stasis changes estrada CBC, BMP 09/20/18 07:11 09/20/18 07:11 Microbiology 09/18/18 13:10 Blood - Peripheral Venous Blood Culture - Preliminary NO GROWTH OBTAINED AFTER 48 HOURS, INCUBATION TO CONTINUE FOR 3 DAYS. 09/18/18 13:12 Blood - Peripheral Venous Blood Culture - Preliminary NO GROWTH OBTAINED AFTER 48 HOURS, INCUBATION TO CONTINUE FOR 3 DAYS. 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 consider d/c estrada catheter Problem List - Problems (1) UTI (urinary tract infection) Code(s): N39.0 - URINARY TRACT INFECTION, SITE NOT SPECIFIED (2) Weakness Code(s): R53.1 - WEAKNESS (3) NABIL (acute kidney injury) Code(s): N17.9 - ACUTE KIDNEY FAILURE, UNSPECIFIED
[2018-09-20] MEDS ORDERED: WARFARIN NA 3 MG TABLET PO SCH (18:00)
[2018-09-20] MEDS: ATORVASTATIN CA 10 MG TABLET (FP) PO SCH (22:03)
--- NOTE | 2018-09-21 10:26 | PN ---
Progress Note, Physician History of Present Illness: PULMONARY ALERT,NO DISTRESS,-TACHYPNEA,-DYSPNEA - Current Medication List Current Medications: Active Medications Atorvastatin Calcium (Lipitor -) 10 mg PO HS [facility] Last Admin: 09/20/18 22:03 Dose: 10 mg Aztreonam (Azactam (Restricted To Id) -) 1 gm IVPB BID [facility]; Protocol Last Admin: 09/20/18 22:03 Dose: 1 gm Levothyroxine Sodium (Synthroid -) 50 mcg PO DAILY [facility] Last Admin: 09/20/18 10:47 Dose: 50 mcg Metoprolol Succinate (Toprol Xl -) 75 mg PO BID [facility] Last Admin: 09/20/18 22:03 Dose: 75 mg Tamsulosin HCl (Flomax -) 0.4 mg PO DAILY [facility] Last Admin: 09/20/18 10:48 Dose: 0.4 mg Warfarin Sodium (Coumadin -) 3 mg PO MoWeFr@1800 [facility] Last Admin: 09/20/18 17:36 Dose: 3 mg - Objective Vital Signs: Vital Signs Temperature 97.9 F 09/21/18 09:00 Pulse Rate 75 09/21/18 09:00 Respiratory Rate 20 09/21/18 09:00 Blood Pressure 138/66 09/21/18 09:00 O2 Sat by Pulse Oximetry (%) 99 09/21/18 09:00 Constitutional: Yes: Well Nourished, Calm Eyes: Yes: WNL HENT: Yes: WNL Neck: Yes: WNL Cardiovascular: Yes: Pulse Irregular, S1, S2 Respiratory: Yes: Diminished Gastrointestinal: Yes: Normal Bowel Sounds, Soft Extremities: Yes: WNL Edema: Yes Problem List - Problems (1) NABIL (acute kidney injury) Code(s): N17.9 - ACUTE KIDNEY FAILURE, UNSPECIFIED (2) CHF exacerbation Code(s): I50.9 - HEART FAILURE, UNSPECIFIED Qualifiers: Heart failure type: unspecified Qualified Code(s): I50.9 - Heart failure, unspecified (3) UTI (urinary tract infection) Code(s): N39.0 - URINARY TRACT INFECTION, SITE NOT SPECIFIED (4) Acute exacerbation of CHF (congestive heart failure) Code(s): I50.9 - HEART FAILURE, UNSPECIFIED (5) Acute renal failure Code(s): N17.9 - ACUTE KIDNEY FAILURE, UNSPECIFIED Qualifiers: Acute renal failure type: unspecified Qualified Code(s): N17.9 - Acute kidney failure, unspecified (6) Atrial fibrillation Code(s): I48.91 - UNSPECIFIED ATRIAL FIBRILLATION (7) Congestive heart failure Code(s): I50.9 - HEART FAILURE, UNSPECIFIED (8) Elevated INR Code(s): R79.1 - ABNORMAL COAGULATION PROFILE (9) HTN (hypertension) Code(s): I10 - ESSENTIAL (PRIMARY) HYPERTENSION (10) Hyperlipidemia Code(s): E78.5 - HYPERLIPIDEMIA, UNSPECIFIED (11) Hypothyroid Code(s): E03.9 - HYPOTHYROIDISM, UNSPECIFIED (12) Pulmonary hypertension Code(s): I27.2 - OTHER SECONDARY PULMONARY HYPERTENSION * DO NOT USE * (13) Shortness of breath Code(s): R06.02 - SHORTNESS OF BREATH Assessment/Plan Assessment/Plan NON-ISCHEMIC CARDIOMYOPATHY REDUCED EF PAF CHF SP AICD INCREASED TROPS INCREASED INR/WEAKNESS/?RECTAL BLEEDING NABIL ABS PER ID COUMADIN BETA-HAL CARDIAC MEDS PER POLYGRAPH OPERATOR DR SANFORD
[2018-09-21] MEDS: AZTREONAM 1 GM VIAL (RESTRICTED TO ID) IVPB SCH ×2 (10:46→22:25)
[2018-09-21] MEDS: LEVOTHYROXINE NA 50 MCG TABLET (FP) PO SCH (10:46)
[2018-09-21] MEDS: TAMSULOSIN HCL 0.4 MG CAP PO SCH (10:46)
[2018-09-21 11:24] LABS: BLOOD UREA NITROGEN 34.5 mg/dL (7-18); CALCIUM 8.5 mg/dL (8.5-10.1); POTASSIUM 4.1 mmol/L (3.5-5.1)
--- NOTE | 2018-09-21 11:29 | PN ---
Progress Note, Physician Chief Complaint: Acute on Chronic CHF Exacerbation Afib SOB History of Present Illness: NAD in bed denies SOB walked with PT 30-35 ft unsteady Seen by Cardiology and pulmonary - Current Medication List Current Medications: Active Medications Atorvastatin Calcium (Lipitor -) 10 mg PO HS [facility] Last Admin: 09/20/18 22:03 Dose: 10 mg Aztreonam (Azactam (Restricted To Id) -) 1 gm IVPB BID [facility]; Protocol Last Admin: 09/21/18 10:46 Dose: 1 gm Levothyroxine Sodium (Synthroid -) 50 mcg PO DAILY [facility] Last Admin: 09/21/18 10:46 Dose: 50 mcg Metoprolol Succinate (Toprol Xl -) 75 mg PO BID [facility] Last Admin: 09/21/18 10:46 Dose: 75 mg Tamsulosin HCl (Flomax -) 0.4 mg PO DAILY [facility] Last Admin: 09/21/18 10:46 Dose: 0.4 mg Warfarin Sodium (Coumadin -) 3 mg PO MoWeFr@1800 [facility] Last Admin: 09/20/18 17:36 Dose: 3 mg - Objective Vital Signs: Vital Signs Temperature 97.9 F 09/21/18 09:00 Pulse Rate 75 09/21/18 09:00 Respiratory Rate 20 09/21/18 09:00 Blood Pressure 138/66 09/21/18 09:00 O2 Sat by Pulse Oximetry (%) 99 09/21/18 09:00 Constitutional: Yes: Well Nourished, No Distress, Calm Cardiovascular: Yes: Pulse Irregular Respiratory: Yes: SOB on Exertion, Wheezes (diffuse) Gastrointestinal: Yes: Normal Bowel Sounds, Soft Genitourinary: Yes: Other (estrada removed) Musculoskeletal: Yes: Muscle Weakness Extremities: Yes: WNL Edema: No Peripheral Pulses WNL: Yes Neurological: Yes: Alert, Oriented Psychiatric: Yes: Alert, Oriented Labs: CBC, BMP 09/20/18 07:11 09/21/18 10:15 INR, PTT INR 1.85 (0.83-1.09) H 09/20/18 07:11 Problem List - Problems (1) NABIL (acute kidney injury) Assessment/Plan: -likely 2/2 to UTI -Cr improving -monitor trend Code(s): N17.9 - ACUTE KIDNEY FAILURE, UNSPECIFIED (2) UTI (urinary tract infection) Assessment/Plan: -Seen by RONNI gutierrez -[facility]: Microbiology 09/18/18 13:12 Blood - Peripheral Venous Blood Culture - Preliminary NO GROWTH OBTAINED AFTER 72 HOURS, INCUBATION TO CONTINUE FOR 2 DAYS. 09/18/18 13:10 Blood - Peripheral Venous Blood Culture - Preliminary NO GROWTH OBTAINED AFTER 72 HOURS, INCUBATION TO CONTINUE FOR 2 DAYS. 09/17/18 06:00 Urine - Urine Clean Catch Urine Culture - Final Proteus Mirabilis -afebrile -leukocytosis resolved Code(s): N39.0 - URINARY TRACT INFECTION, SITE NOT SPECIFIED (3) Weakness Assessment/Plan: -Physical therapy -SNF placement Code(s): R53.1 - WEAKNESS (4) Shortness of breath Assessment/Plan: -Seen by pulmonary -Jaye QID -Nasal O2 PRN Code(s): R06.02 - SHORTNESS OF BREATH Assessment/Plan see problem list
[2018-09-21] MEDS ORDERED: TAMSULOSIN HCL 0.4 MG CAP PO SCH (11:34)
[2018-09-21] MEDS ORDERED: ACETAMINOPHEN 325 MG TABLET (FP) PO PRN (11:34)
--- NOTE | 2018-09-21 14:56 | PN ---
Progress Note (short form) - Note Progress Note: estrada removed no complaints Vital Signs Period Temp Pulse Resp BP Sys/Edwards Pulse Ox Last 24 Hr 97.9 F-98.6 F 75-81 19-20 127-138/66-76 99-99 cor-rrr lungs clear, decresed bs at bases abd soft,nt ext venous stasis changes CBC, BMP 09/20/18 07:11 09/21/18 10:15 Microbiology 09/18/18 13:12 Blood - Peripheral Venous Blood Culture - Preliminary NO GROWTH OBTAINED AFTER 72 HOURS, INCUBATION TO CONTINUE FOR 2 DAYS. 09/18/18 13:10 Blood - Peripheral Venous Blood Culture - Preliminary NO GROWTH OBTAINED AFTER 72 HOURS, INCUBATION TO CONTINUE FOR 2 DAYS. 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 clinically improved ?SNF placement Problem List - Problems (1) UTI (urinary tract infection) Code(s): N39.0 - URINARY TRACT INFECTION, SITE NOT SPECIFIED (2) Weakness Code(s): R53.1 - WEAKNESS (3) NABIL (acute kidney injury) Code(s): N17.9 - ACUTE KIDNEY FAILURE, UNSPECIFIED
[2018-09-21] MEDS: ALBUTEROL SO4 2.5/IPRATROPIUM 0.5 INH SOL 3 ML VIAL.NEB. NEB SCH ×2 (15:44→20:45)
[2018-09-21 17:28] LABS: INR 1.68 (0.83-1.09); PROTHROMBIN TIME (PATIENT) 19.9 SEC (9.7-13.0)
[2018-09-21] MEDS ORDERED: WARFARIN NA 3 MG TABLET PO SCH (18:00)
[2018-09-21] MEDS: ATORVASTATIN CA 10 MG TABLET (FP) PO SCH (22:27)
[2018-09-22 06:39] LABS: BLOOD UREA NITROGEN 32.1 mg/dL (7-18); CALCIUM 8.4 mg/dL (8.5-10.1); CREATININE 0.9 mg/dL (0.55-1.3); POTASSIUM 4.2 mmol/L (3.5-5.1)
[2018-09-22 06:39] LABS: INR 1.6 (0.83-1.09)
[2018-09-22] MEDS: ALBUTEROL SO4 2.5/IPRATROPIUM 0.5 INH SOL 3 ML VIAL.NEB. NEB SCH ×4 (08:10→21:24)
[2018-09-22] MEDS: TAMSULOSIN HCL 0.4 MG CAP PO SCH (08:31)
--- NOTE | 2018-09-22 09:34 | PN ---
Progress Note (short form) - Note Progress Note: estrada removed bilateral knee pain Vital Signs Period Temp Pulse Resp BP Sys/Edwards Pulse Ox Last 24 Hr 97.7 F-98.8 F 79-91 20-20 126-139/62-80 98 cor-rrr lungs clear abd soft,nt ext no knee swelling CBC, BMP 09/20/18 07:11 09/22/18 06:00 Microbiology 09/18/18 13:12 Blood - Peripheral Venous Blood Culture - Preliminary NO GROWTH OBTAINED AFTER 72 HOURS, INCUBATION TO CONTINUE FOR 2 DAYS. 09/18/18 13:10 Blood - Peripheral Venous Blood Culture - Preliminary NO GROWTH OBTAINED AFTER 72 HOURS, INCUBATION TO CONTINUE FOR 2 DAYS. 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
[2018-09-22] MEDS: LEVOTHYROXINE NA 50 MCG TABLET (FP) PO SCH (09:58)
[2018-09-22] MEDS: AZTREONAM 1 GM VIAL (RESTRICTED TO ID) IVPB SCH ×2 (09:58→21:25)
--- NOTE | 2018-09-22 11:37 | PN ---
Progress Note, Physician Chief Complaint: Acute on Chronic CHF Exacerbation Afib SOB History of Present Illness: NAD in bed denies SOB walked with PT 30-35 ft unsteady Seen by Cardiology and pulmonary - Current Medication List Current Medications: Active Medications Acetaminophen (Tylenol -) 650 mg PO Q4H PRN PRN Reason: PAIN OR FEVER Albuterol/Ipratropium (Duoneb -) 1 amp NEB RQID [facility] Last Admin: 09/22/18 08:10 Dose: 1 amp Atorvastatin Calcium (Lipitor -) 10 mg PO HS [facility] Last Admin: 09/21/18 22:27 Dose: 10 mg Aztreonam (Azactam (Restricted To Id) -) 1 gm IVPB BID [facility]; Protocol Last Admin: 09/22/18 09:58 Dose: 1 gm Levothyroxine Sodium (Synthroid -) 50 mcg PO DAILY [facility] Last Admin: 09/22/18 09:58 Dose: 50 mcg Metoprolol Succinate (Toprol Xl -) 75 mg PO BID [facility] Last Admin: 09/22/18 09:57 Dose: 75 mg Tamsulosin HCl (Flomax -) 0.8 mg PO DAILY@0830 [facility] Last Admin: 09/22/18 08:31 Dose: 0.8 mg Warfarin Sodium (Coumadin -) 6 mg PO TuTh@1800 [facility] Last Admin: 09/21/18 17:43 Dose: 6 mg Warfarin Sodium (Coumadin -) 3 mg PO SUMOWEFRSA@1800 [facility] - Objective Vital Signs: Vital Signs Temperature 98.1 F 09/22/18 05:00 Pulse Rate 85 09/22/18 05:00 Respiratory Rate 20 09/22/18 05:00 Blood Pressure 132/73 09/22/18 05:00 O2 Sat by Pulse Oximetry (%) 98 09/21/18 21:00 Constitutional: Yes: Well Nourished, No Distress, Calm Cardiovascular: Yes: Regular Rate and Rhythm Respiratory: Yes: Wheezes (DIFFUSE) Gastrointestinal: Yes: Normal Bowel Sounds, Soft Genitourinary: Yes: WNL Musculoskeletal: Yes: Muscle Weakness Extremities: Yes: WNL Edema: No Peripheral Pulses WNL: Yes Neurological: Yes: Alert, Oriented Psychiatric: Yes: Alert, Oriented Labs: CBC, BMP 09/20/18 07:11 09/22/18 06:00 INR, PTT INR 1.60 (0.83-1.09) H 09/22/18 05:40 Problem List - Problems (1) NABIL (acute kidney injury) Assessment/Plan: -likely 2/2 to UTI -Cr improving -monitor trend Code(s): N17.9 - ACUTE KIDNEY FAILURE, UNSPECIFIED (2) UTI (urinary tract infection) Assessment/Plan: -Seen by ID -IV abx -UC: Microbiology 09/18/18 13:12 Blood - Peripheral Venous Blood Culture - Preliminary NO GROWTH OBTAINED AFTER 72 HOURS, INCUBATION TO CONTINUE FOR 2 DAYS. 09/18/18 13:10 Blood - Peripheral Venous Blood Culture - Preliminary NO GROWTH OBTAINED AFTER 72 HOURS, INCUBATION TO CONTINUE FOR 2 DAYS. 09/17/18 06:00 Urine - Urine Clean Catch Urine Culture - Final Proteus Mirabilis -afebrile -leukocytosis resolved Code(s): N39.0 - URINARY TRACT INFECTION, SITE NOT SPECIFIED (3) Weakness Assessment/Plan: -Physical therapy -SNF placement Code(s): R53.1 - WEAKNESS (4) Shortness of breath Assessment/Plan: -Seen by pulmonary -Jaye QID -Nasal O2 PRN -IV medrol 40 mg Q8H for 24 hours Code(s): R06.02 - SHORTNESS OF BREATH
--- NOTE | 2018-09-22 11:39 | PN ---
Progress Note, Physician History of Present Illness: pulmonary alert,no distress,-cp,-sob - Current Medication List Current Medications: Active Medications Acetaminophen (Tylenol -) 650 mg PO Q4H PRN PRN Reason: PAIN OR FEVER Albuterol/Ipratropium (Duoneb -) 1 amp NEB RQID [facility] Last Admin: 09/22/18 08:10 Dose: 1 amp Atorvastatin Calcium (Lipitor -) 10 mg PO HS [facility] Last Admin: 09/21/18 22:27 Dose: 10 mg Aztreonam (Azactam (Restricted To Id) -) 1 gm IVPB BID [facility]; Protocol Last Admin: 09/22/18 09:58 Dose: 1 gm Levothyroxine Sodium (Synthroid -) 50 mcg PO DAILY [facility] Last Admin: 09/22/18 09:58 Dose: 50 mcg Metoprolol Succinate (Toprol Xl -) 75 mg PO BID [facility] Last Admin: 09/22/18 09:57 Dose: 75 mg Tamsulosin HCl (Flomax -) 0.8 mg PO DAILY@0830 [facility] Last Admin: 09/22/18 08:31 Dose: 0.8 mg Warfarin Sodium (Coumadin -) 6 mg PO TuTh@1800 [facility] Last Admin: 09/21/18 17:43 Dose: 6 mg Warfarin Sodium (Coumadin -) 3 mg PO SUMOWEFRSA@1800 [facility] - Objective Vital Signs: Vital Signs Temperature 98.1 F 09/22/18 05:00 Pulse Rate 85 09/22/18 05:00 Respiratory Rate 20 09/22/18 05:00 Blood Pressure 132/73 09/22/18 05:00 O2 Sat by Pulse Oximetry (%) 98 09/21/18 21:00 Constitutional: Yes: Well Nourished, Calm Eyes: Yes: WNL HENT: Yes: WNL Neck: Yes: WNL Cardiovascular: Yes: Pulse Irregular, S1, S2 Respiratory: Yes: CTA Bilaterally Gastrointestinal: Yes: Normal Bowel Sounds, Soft Extremities: Yes: WNL Edema: Yes Labs: CBC, BMP 09/22/18 06:00 INR, PTT INR 1.60 (0.83-1.09) H 09/22/18 05:40 Problem List - Problems (1) NABIL (acute kidney injury) Code(s): N17.9 - ACUTE KIDNEY FAILURE, UNSPECIFIED (2) CHF exacerbation Code(s): I50.9 - HEART FAILURE, UNSPECIFIED Qualifiers: Heart failure type: unspecified Qualified Code(s): I50.9 - Heart failure, unspecified (3) UTI (urinary tract infection) Code(s): N39.0 - URINARY TRACT INFECTION, SITE NOT SPECIFIED (4) Acute exacerbation of CHF (congestive heart failure) Code(s): I50.9 - HEART FAILURE, UNSPECIFIED (5) Acute renal failure Code(s): N17.9 - ACUTE KIDNEY FAILURE, UNSPECIFIED Qualifiers: Acute renal failure type: unspecified Qualified Code(s): N17.9 - Acute kidney failure, unspecified (6) Atrial fibrillation Code(s): I48.91 - UNSPECIFIED ATRIAL FIBRILLATION (7) Congestive heart failure Code(s): I50.9 - HEART FAILURE, UNSPECIFIED (8) Elevated INR Code(s): R79.1 - ABNORMAL COAGULATION PROFILE (9) HTN (hypertension) Code(s): I10 - ESSENTIAL (PRIMARY) HYPERTENSION (10) Hyperlipidemia Code(s): E78.5 - HYPERLIPIDEMIA, UNSPECIFIED (11) Hypothyroid Code(s): E03.9 - HYPOTHYROIDISM, UNSPECIFIED (12) Pulmonary hypertension Code(s): I27.2 - OTHER SECONDARY PULMONARY HYPERTENSION * DO NOT USE * (13) Shortness of breath Code(s): R06.02 - SHORTNESS OF BREATH Assessment/Plan Assessment/Plan NON-ISCHEMIC CARDIOMYOPATHY REDUCED EF PAF CHF SP AICD INCREASED TROPS INCREASED INR WEAKNESS/?RECTAL BLEEDING NABIL uti ABS PER ID COUMADIN BETA-HAL CARDIAC MEDS DR [place]
[2018-09-22] MEDS ORDERED: WARFARIN NA 3 MG TABLET PO SCH ×2 (18:00)
[2018-09-22] MEDS ORDERED: PT OWN MED DRAWER 7, Y5N ONE (18:08)
[2018-09-22] MEDS: methylPREDNISolone NA SUCC 40 MG/1 ML VIAL IVPUSH SCH (18:11)
[2018-09-22] MEDS: ATORVASTATIN CA 10 MG TABLET (FP) PO SCH (21:25)
[2018-09-23] MEDS: methylPREDNISolone NA SUCC 40 MG/1 ML VIAL IVPUSH SCH ×2 (02:57→10:37)
[2018-09-23 05:54] VITALS: TEMP 97.8
[2018-09-23 06:50] LABS: INR 1.67 (0.83-1.09); PROTHROMBIN TIME (PATIENT) 19.8 SEC (9.7-13.0)
[2018-09-23] MEDS: ALBUTEROL SO4 2.5/IPRATROPIUM 0.5 INH SOL 3 ML VIAL.NEB. NEB SCH ×2 (08:12→12:03)
[2018-09-23] MEDS: AZTREONAM 1 GM VIAL (RESTRICTED TO ID) IVPB SCH (10:36)
[2018-09-23] MEDS: TAMSULOSIN HCL 0.4 MG CAP PO SCH (10:36)
[2018-09-23] MEDS: LEVOTHYROXINE NA 50 MCG TABLET (FP) PO SCH (10:37)
--- NOTE | 2018-09-23 11:38 | DS ---
Physical Examination Vital Signs: Vital Signs Temperature 97.8 F 09/23/18 05:00 Pulse Rate 82 09/23/18 05:00 Respiratory Rate 20 09/23/18 09:00 Blood Pressure 139/81 09/23/18 05:00 O2 Sat by Pulse Oximetry (%) 97 09/23/18 09:00 Findings/Remarks: This is a 83 y/o man with a PMHx of HTN, CHF, Afib, PPM. Who presents to the ED with generalized weakness and SOB. Patient reports increased YA. Patient admits to not taking his medications for 2 days. Patient denies fever, chills, Shanks, CP, palpitations, AP, N/V/D, constipation. Constitutional: Yes: Well Nourished, No Distress, Calm Cardiovascular: Yes: Regular Rate and Rhythm Respiratory: Yes: Regular Gastrointestinal: Yes: Normal Bowel Sounds, Soft Renal/: Yes: WNL Musculoskeletal: Yes: Muscle Weakness Extremities: Yes: WNL Edema: No Peripheral Pulses WNL: Yes Integumentary: Yes: WNL Neurological: Yes: Alert, Oriented Psychiatric: Yes: Alert, Oriented Labs: CBC, BMP 09/20/18 07:11 09/22/18 06:00 Discharge Summary Reason For Visit: CHF Current Active Problems NABIL (acute kidney injury) (Acute) CHF exacerbation (Acute) Leukocytosis (Acute) UTI (urinary tract infection) (Acute) Weakness (Acute) Condition: Stable - Instructions Disposition: [facility] F[facility] - Home Medications Comprehensive Discharge Medication List: Ambulatory Orders Digoxin [Lanoxin -] 0.125 mg PO DAILY 05/24/15 Furosemide 40 mg PO DAILY 05/24/15 Levothyroxine [Synthroid -] 50 mcg PO DAILY 05/24/15 Losartan Potassium [Cozaar -] 25 mg PO DAILY 05/24/15 Simvastatin [Zocor -] 10 mg PO HS 05/24/15 Metoprolol Succinate [Toprol XL -] 50 mg PO BID tab.sr.24h 05/31/15 Tamsulosin HCl 0.4 mg PO DAILY 07/13/17 Warfarin Na [Coumadin -] 3 mg PO MOWEFR 07/13/17
[2018-09-23] MEDS ORDERED: WARFARIN NA 3 MG TABLET PO SCH ×3 (11:39→18:00)
--- NOTE | 2018-09-23 12:41 | PN ---
Progress Note (short form) - Note Progress Note: PULMONARY Denies shortness of breath, cough or wheezing. Vital Signs Period Temp Pulse Resp BP Sys/Edwards Pulse Ox Last 24 Hr 97.7 F-98.0 F 82-89 20-20 112-139/59-81 97-98 Gen: NAD at rest Heart: RRR Lung: decreased breath sounds at the bases Abd: soft, nontender Ext: no edema CBC, BMP 09/20/18 07:11 09/22/18 06:00 Active Medications Acetaminophen (Tylenol -) 650 mg PO Q4H PRN PRN Reason: PAIN OR FEVER Last Admin: 09/22/18 15:38 Dose: 650 mg Albuterol/Ipratropium (Duoneb -) 1 amp NEB RQID [facility] Last Admin: 09/23/18 12:03 Dose: 1 amp Atorvastatin Calcium (Lipitor -) 10 mg PO HS [facility] Last Admin: 09/22/18 21:25 Dose: 10 mg Levothyroxine Sodium (Synthroid -) 50 mcg PO DAILY [facility] Last Admin: 09/23/18 10:37 Dose: 50 mcg Methylprednisolone Sodium Succinate (Solu-Medrol -) 40 mg IVPUSH Q8H-IV [facility] Last Admin: 09/23/18 10:37 Dose: 40 mg Metoprolol Succinate (Toprol Xl -) 75 mg PO BID [facility] Last Admin: 09/23/18 10:37 Dose: 75 mg Tamsulosin HCl (Flomax -) 0.8 mg PO DAILY@0830 [facility] Last Admin: 09/23/18 10:36 Dose: 0.8 mg Warfarin Sodium (Coumadin -) 3 mg PO MoWeFr@1800 [facility] Warfarin Sodium (Coumadin -) 6 mg PO SuTuThSa@1800 [facility] A/P NICM CAD Paroxysmal Atrial Fibrillation +Troponins Acute Kidney Injury improving UTI - inhaled bronchodilators - can d/c medrol - rate controlled - continue anticoagulation - d/c planning in progress
[2018-09-23 15:20] VITALS: BP 138/77; PULSE 81
== END 2018-09-23 14:56 | DRG 682 ==
LOC: JER 22:44 → JERBED 09-17 05:13 → J4W 09-17 21:01
PROVIDERS: ADMIT Family Medicine; ATTEND Family Medicine
DX: N17.9 Acute kidney failure, unspecified (principal); I50.23 Acute on chronic systolic (congestive) heart failure; I13.0 Hypertensive heart and chronic kidney disease with heart failure and stage 1 through stage 4 chronic kidney disease, or unspecified chronic kidney disease; N39.0 Urinary tract infection, site not specified; I42.9 Cardiomyopathy, unspecified; I48.0 Paroxysmal atrial fibrillation; I27.20 Pulmonary hypertension, unspecified; I34.0 Nonrheumatic mitral (valve) insufficiency; I36.1 Nonrheumatic tricuspid (valve) insufficiency; E03.9 Hypothyroidism, unspecified; I25.10 Atherosclerotic heart disease of native coronary artery without angina pectoris; N40.0 Benign prostatic hyperplasia without lower urinary tract symptoms; H91.90 Unspecified hearing loss, unspecified ear; Z87.891 Personal history of nicotine dependence; K40.90 Unilateral inguinal hernia, without obstruction or gangrene, not specified as recurrent; Z95.810 Presence of automatic (implantable) cardiac defibrillator; Z79.01 Long term (current) use of anticoagulants; B96.4 Proteus (mirabilis) (morganii) as the cause of diseases classified elsewhere
CPT/HCPCS: 36415; 71045-TC-FY; 74176-TC; 80048; 80053; 80162; 81003; 82272; 82550; 82553; 83036; 83605; 83880; 84484; 85025; 85027; 85610; 87040; 87086; 87186; 93005; 93010; 94640; 97116-GP; 97161-GP; 99285-25